=== PATIENT | male | born 1975 | race Caucasian/White ===

== ENCOUNTER 2018-03-04 11:38 | Emergency (ER) | payer MEDICAID ==
[2018-03-04 11:47] VITALS: BP 143/94
--- NOTE | 2018-03-04 13:00 | ER Document Report ---
ED Medical Screen (RME) - General Chief Complaint: Facial Swelling Stated Complaint: POSSIBLE ALLERGIC REACTION Time Seen by Provider: 03/04/18 12:18 Mode of Arrival: Ambulatory Information source: Patient Notes: This is a 42-year-old man with a history of type 1 diabetes who presents to the emergency room with rash of the face, arms, trunk after doing work one day previous. Patient has had poison tali in the past. Patient was doing yard work with his daughter who has had significant rash to the face consistent with poison tali. TRAVEL OUTSIDE OF THE [place] IN LAST 30 DAYS: No - HPI Onset: Yesterday Onset/Duration: Gradual Quality of pain: Burning, Dull Severity: Mild Associated Symptoms: denies: Chest pain, Earache, Fever, Shortness of breath Exacerbated by: Denies Relieved by: Denies Similar symptoms previously: Yes Recently seen / treated by doctor: No - Related Data Smoking: Cigarettes Frequency of alcohol use: None Drug Abuse: None Allergies/Adverse Reactions: No Known Allergies Allergy (Verified 03/04/18 11:38) Past Medical History - General Information source: Patient - Social History Cigarette use (# per day): Yes - Half a pack per day Chew tobacco use (# tins/day): Yes Frequency of alcohol use: None Drug Abuse: None Lives with: Family Family history: None Endocrine Medical History: Reports: Hx Diabetes Mellitus Type 2 Renal/ Medical History: Denies: Hx Peritoneal Dialysis Psychiatric Medical History: Reports: Hx Bipolar Disorder Past Surgical History: Reports: Hx Abdominal Surgery, Hx Appendectomy, Hx Cholecystectomy, Hx Orthopedic Surgery - 3xback, 2x rt. elbow Review of Systems - Review of Systems Constitutional: denies: Chills, Fever EENT: Other Cardiovascular: denies: Chest pain - Facial rash, Palpitations, Heart racing Respiratory: denies: Cough, Hemoptysis, Short of breath, Wheezing Gastrointestinal: denies: Abdomen distended, Abdominal pain Genitourinary: No symptoms reported Male Genitourinary: No symptoms reported Musculoskeletal: See HPI Skin: See HPI Hematologic/Lymphatic: No symptoms reported Neurological/Psychological: No symptoms reported Physical Exam - Vital signs Vitals: Temp Pulse Resp BP Pulse Ox 98.0 F 92 20 143/94 H 100 03/04/18 11:45 03/04/18 11:45 03/04/18 11:45 03/04/18 11:45 08/22/18 11:45 Notes: Physical exam: GENERAL: 32-year-old man, alert and oriented 3, no acute distress, does have a diffuse rash to the face. There is some swelling. HEAD: Atraumatic, normocephalic. EYES: Pupils equal round and reactive to light, extraocular movements intact, sclera anicteric, conjunctiva are normal. ENT: TMs normal, nares patent, oropharynx clear without exudates. Moist mucous membranes. NECK: Normal range of motion, supple without obvious mass or JVD. LUNGS: Breath sounds clear to auscultation bilaterally and equal. No wheezes rales or rhonchi. HEART: Regular rate and rhythm without murmurs, rubs or gallops. ABDOMEN: Soft, normoactive bowel sounds. No tenderness to palpation. No guarding, no rebound. No masses appreciated. EXTREMITIES: Normal range of motion, no pitting or edema. No clubbing or cyanosis. NEUROLOGICAL: Cranial nerves II through XII grossly intact. Normal speech, moving all extremities. PSYCH: Normal mood, normal affect. SKIN: Fuhs erythematous rash to the face. He does have rash to the upper and lower extremities and trunk which are linear in nature. Course - Vital Signs Vital signs: Temp Pulse Resp BP Pulse Ox 98.0 F 92 20 143/94 H 100 03/04/18 11:45 03/04/18 11:45 03/04/18 11:45 03/04/18 11:45 03/04/18 11:45 Doctor's Discharge - Discharge Clinical Impression: Poison tali dermatitis Condition: Stable Disposition: HOME, SELF-CARE Instructions: Use of Diphenhydramine, Topical Steroid Cream or Ointment ([facility]) Additional Instructions: As we discussed, I would recommend bathing and Aveeno bath oil. You can use calamine lotion. Take Benadryl 1 tablet every 6 hours for itching. You can take Percocet for pain/discomfort. Return to the emergency room for worsening rash, or concerns getting worse. I do want to follow-up with a supervisor assembly room. Follow-up with a supervisor assembly room: [facility] [place] [id number] , [place], [place] [phone] Prescriptions: Oxycodone HCl/Acetaminophen [Percocet 5-325 mg Tablet] 1 - 2 tab PO ASDIR PRN # 25 tablet PRN Reason:
== END 2018-03-04 13:10 | disposition home or self-care (01) ==
LOC: ER 11:38
DX: L23.7 Allergic contact dermatitis due to plants, except food (principal); E10.9 Type 1 diabetes mellitus without complications; F17.210 Nicotine dependence, cigarettes, uncomplicated
CPT/HCPCS: 99282

== ENCOUNTER 2018-10-03 16:38 | Inpatient (IN) | payer MEDICAID ==
--- NOTE | 2018-10-03 18:14 | ER Document Report ---
ED Medical Screen (RME) - General Chief Complaint: Arrhythmia Stated Complaint: HEARTRATE ISSUE, FOOT/LEG SWELLING Time Seen by Provider: 10/03/18 18:11 Mode of Arrival: Wheelchair Information source: Patient TRAVEL OUTSIDE OF THE [place] IN LAST 30 DAYS: No - HPI Patient complains to provider of: R foot/leg pain and palpitations Onset: Yesterday - pt with h/o CHF with c/o L leg pain and swelling and palpitations. Denies CP - Related Data Allergies/Adverse Reactions: No Known Allergies Allergy (Verified 10/03/18 16:41) Past Medical History - Social History Chew tobacco use (# tins/day): No Frequency of alcohol use: None Drug Abuse: None Family history: None Endocrine Medical History: Reports: Hx Diabetes Mellitus Type 2 Renal/ Medical History: Denies: Hx Peritoneal Dialysis Psychiatric Medical History: Reports: Hx Bipolar Disorder Past Surgical History: Reports: Hx Abdominal Surgery, Hx Appendectomy, Hx Cholecystectomy, Hx Orthopedic Surgery - 3xback, 2x rt. elbow Physical Exam - Vital signs Vitals: Temp Pulse Resp BP Pulse Ox 98.5 F 102 H 16 135/84 H 99 10/03/18 16:55 10/03/18 16:55 10/03/18 16:55 10/03/18 16:55 10/03/18 16:55 Course - Vital Signs Vital signs: Temp Pulse Resp BP Pulse Ox 98.5 F 102 H 16 135/84 H 99 10/03/18 16:55 10/03/18 16:55 10/03/18 16:55 10/03/18 16:55 10/03/18 16:55
[2018-10-03 19:15] LABS: ABSOLUTE BASOPHILS # (AUTO) 0.1 10^3/uL (0.0-0.2); ABSOLUTE EOSINOPHILS # (AUTO) 0.2 10^3/uL (0.0-0.6); ABSOLUTE LYMPHOCYTES (AUTO) 1.8 10^3/uL (0.5-4.7); ABSOLUTE MONOCYTES (AUTO) 0.6 10^3/uL (0.1-1.4); ABSOLUTE NEUT (AUTO) 8.2 10^3/uL (1.7-8.2); BASOPHILS % (AUTO) 0.9 % (0-2); EOSINOPHILS % (AUTO) 1.9 % (0-6); HEMATOCRIT 36.8 % (37.9-51.0); HEMOGLOBIN 12.6 g/dL (13.5-17.0); LYMPHOCYTES % (AUTO) 16.2 % (13-45); MEAN CORPUSCULAR HEMOGLOBIN 30.3 pg (27.0-33.4); MEAN CORPUSCULAR HGB CONC 34.3 g/dL (32.0-36.0); MEAN CORPUSCULAR VOLUME 88 fl (80-97); MONOCYTES % (AUTO) 5.5 % (3-13); PLATELET COUNT 296 10^3/uL (150-450); RED BLOOD COUNT 4.17 10^6/uL (4.35-5.55); SEGMENTED NEUTROPHILS % (AUTO) 75.5 % (42-78); TOTAL CELLS COUNTED % (AUTO) 100 %; WHITE BLOOD COUNT 10.8 10^3/uL (4.0-10.5)
--- NOTE | 2018-10-03 19:21 | RADIOLOGY REPORT (SQ) ---
EXAM DESCRIPTION: FOOT RIGHT COMPLETE COMPLETED DATE/TIME: 10/03/2018 7:06 pm REASON FOR STUDY: redness, swelling COMPARISON: None. NUMBER OF VIEWS: Three views. TECHNIQUE: AP, lateral and oblique radiographic images acquired of the right foot. LIMITATIONS: None. FINDINGS: MINERALIZATION: Normal. BONES: No acute fracture or dislocation. No worrisome bone lesions. JOINTS: No effusions. SOFT TISSUES: No soft tissue swelling. No foreign body. OTHER: No other significant finding. IMPRESSION: NEGATIVE STUDY OF THE RIGHT FOOT. NO RADIOGRAPHIC EVIDENCE OF ACUTE INJURY. TECHNICAL DOCUMENTATION: JOB ID: [id number] [employer] / [employer]- All Rights Reserved Reading location - IP/workstation name: [email or web address]
[2018-10-03 19:36] LABS: ALANINE AMINOTRANSFERASE 16 U/L (21-72); ALBUMIN 4.2 g/dL (3.5-5.0); ALKALINE PHOSPHATASE 59 U/L (38-126); ANION GAP 13 (5-19); ASPARTATE AMINO TRANSFERASE 26 U/L (17-59); BILIRUBIN,DIRECT 0.3 mg/dL (0.0-0.4); BILIRUBIN,TOTAL 0.5 mg/dL (0.2-1.3); BLOOD UREA NITROGEN 12 mg/dL (7-20); CALCIUM 9.3 mg/dL (8.4-10.2); CARBON DIOXIDE 29 mmol/L (22-30); CHLORIDE 95 mmol/L (98-107); CREATINE KINASE 59 U/L (55-170); GLUCOSE 266 mg/dL (75-110); POTASSIUM 3.5 mmol/L (3.6-5.0); SODIUM 137.4 mmol/L (137-145); TOTAL PROTEIN 7.7 g/dL (6.3-8.2)
--- NOTE | 2018-10-03 19:44 | RADIOLOGY REPORT (SQ) ---
EXAM DESCRIPTION: VENOUS UNILATERAL LOWER COMPLETED DATE/TIME: 10/03/2018 7:34 pm REASON FOR STUDY: R leg pain and swelling COMPARISON: None. TECHNIQUE: Dynamic and static worthington scale and color images acquired of the right leg venous system. S elected spectral images acquired with additional compression and augmentation maneuvers. The contrala teral common femoral vein and saphenofemoral junction were also imaged. Images stored on PACS. LIMITATIONS: None. FINDINGS: COMMON FEMORAL: Normal phasicity, compression and augmentation. No visualized echogenic ma terial on worthington scale. No defects on color images. FEMORAL: Normal compression and augmentation. No visualized echogenic material on worthington scale. No defe cts on color images. POPLITEAL: Normal compression, augmentation. No visualized echogenic material on worthington scale. No defec ts on color images. CALF VESSELS: Normal compression, augmentation. No visualized echogenic material on worthington scale. No de fects on color images. GSV and SSV: Normal compression, augmentation. No visualized echogenic material on worthington scale. No def ects on color images. ANY DEEP VENOUS INSUFFICIENCY: Not evaluated. ANY EVIDENCE OF POPLITEAL CYST: No. OTHER: No other significant finding. CONTRALATERAL COMMON FEMORAL VEIN AND SAPHENOFEMORAL JUNCTION: Normal phasicity, compression and augmentation. No visualized echogenic material on worthington scale. No de fects on color images. IMPRESSION: NO EVIDENCE DVT OR SVT IN THE RIGHT LEG. TECHNICAL DOCUMENTATION: JOB ID: [id number] [id number] 2010 [employer]- All Rights Reserved Reading location - IP/workstation name: [email or web address]
[2018-10-03 19:48] LABS: CREATINE KINASE MB 1.23 ng/mL (<4.55); TROPONIN I < 0.012 ng/mL
[2018-10-03] MEDS ORDERED: VANCOMYCIN HCL INJ 1000 MG VIAL IV ONE (20:29)
[2018-10-03] MEDS ORDERED: CEFTRIAXONE RTU 1 GM/D5W 50 ML IV ONE (20:29)
--- NOTE | 2018-10-03 20:31 | ER Document Report ---
ED Extremity Problem, Lower - General Chief Complaint: Arrhythmia Stated Complaint: HEARTRATE ISSUE, FOOT/LEG SWELLING Time Seen by Provider: 10/03/18 18:11 Mode of Arrival: Wheelchair Information source: Patient TRAVEL OUTSIDE OF THE [place] IN LAST 30 DAYS: No - HPI Patient complains to provider of: Pain, Swelling Location: Foot, Great Toe Occurred: Yesterday Onset/Duration: Gradual Quality of pain: Achy, Burning, Fullness, Pressure, Throbbing Severity: Moderate Pain Level: 4 Recent injury: No Associated symptoms: Painful ambulation Exacerbated by: Movement Relieved by: Nothing Notes: Patient is a 43-year-old male with diabetes and congestive heart failure presenting to the emergency room today complaining of painful redness and swelling to his right foot that he first noted yesterday, he reports a subjective fever at home last night, denies injury or trauma, no new shoes, states he was not even wearing shoes most of the day yesterday, no history of similar symptoms previously - Related Data Allergies/Adverse Reactions: No Known Allergies Allergy (Verified 10/03/18 16:41) Past Medical History - General Information source: Patient - Social History Smoking Status: Never Smoker Chew tobacco use (# tins/day): No Frequency of alcohol use: None Drug Abuse: None Family History: Reviewed & Not Pertinent Patient has suicidal ideation: No Patient has homicidal ideation: No Endocrine Medical History: Reports: Hx Diabetes Mellitus Type 2 Renal/ Medical History: Denies: Hx Peritoneal Dialysis Psychiatric Medical History: Reports: Hx Bipolar Disorder Past Surgical History: Reports: Hx Abdominal Surgery, Hx Appendectomy, Hx Cholecystectomy, Hx Orthopedic Surgery - 3xback, 2x rt. elbow Review of Systems - Review of Systems Constitutional: Fever EENT: No symptoms reported Cardiovascular: No symptoms reported Respiratory: No symptoms reported Gastrointestinal: No symptoms reported Genitourinary: No symptoms reported Male Genitourinary: No symptoms reported Musculoskeletal: No symptoms reported Skin: See HPI Hematologic/Lymphatic: No symptoms reported Neurological/Psychological: No symptoms reported -: Yes All other systems reviewed and negative Physical Exam - Vital signs Vitals: Temp Pulse Resp BP Pulse Ox 98.5 F 102 H 16 135/84 H 99 10/03/18 16:55 10/03/18 16:55 10/03/18 16:55 10/03/18 16:55 10/03/18 16:55 Interpretation: Tachycardic - General General appearance: Appears well In distress: None - Appears in pain - HEENT Head: Normocephalic, Atraumatic Eyes: Normal Mouth/Lips: Caries - Dentition - Respiratory Respiratory status: No respiratory distress Chest status: Nontender Breath sounds: Normal Chest palpation: Normal - Cardiovascular Rhythm: Regular, Tachycardia Heart sounds: Normal auscultation Murmur: No - Abdominal Inspection: Normal Distension: No distension Bowel sounds: Normal Tenderness: Nontender - Back Back: Normal - Extremities General upper extremity: Normal inspection Foot: Other - Blistering present on the medial surface of the great toe on the right, with erythema extending to the dorsal surface of the foot and streaking up the medial leg, positive calf tenderness, erythematous skin is hot to touch and exquisitely tender - Neurological Neuro grossly intact: Yes Cognition: Normal Orientation: AAOx4 Lana Coma Scale Eye Opening: Spontaneous Lana Coma Scale Verbal: Oriented Caney Coma Scale Motor: Obeys Commands Lana Coma Scale Total: 15 Speech: Normal Motor strength normal: LUE, RUE, LLE, RLE Sensory: Normal - Psychological Associated symptoms: Normal affect, Normal mood - Skin Skin Temperature: Warm Skin Moisture: Dry Skin Color: Normal Course - Re-evaluation Re-evalutation: 10/03/18 21:39 Patient with foot cellulitis with slight streaking up the medial calf, tender to touch, reports subjective fevers at home, history of diabetes, white count is 10.8, labs are otherwise relatively unremarkable, however given patient's history of diabetes, and the extent of cellulitis with streaking up his leg decision was made to admit for IV antibiotics and further evaluation and treatment, patient in agreement with this plan, discussed with Dr. Purcell hospitalist who agrees to admit for further evaluation and treatment - Vital Signs Vital signs: Temp Pulse Resp BP Pulse Ox 98.5 F 102 H 22 H 156/109 H 100 10/03/18 16:55 10/03/18 16:55 10/03/18 20:01 10/03/18 20:00 10/03/18 20:01 - Laboratory Result Diagrams: 10/03/18 18:35 10/03/18 18:35 Laboratory results interpreted by me: 10/03/18 10/03/18 18:35 18:35 WBC 10.8 H RBC 4.17 L Hgb 12.6 L Hct 36.8 L Potassium 3.5 L Chloride 95 L Glucose 266 H ALT 16 L Discharge - Discharge Clinical Impression: Diabetic foot infection Condition: Stable Disposition: ADMITTED INPATIENT Admitting Provider: Hospitalist Unit Admitted: Medical Floor
[2018-10-03] MEDS ORDERED: MORPHINE SULFATE 10 MG/ML INJ IV ONE (20:49)
[2018-10-03] MEDS ORDERED: ZOLPIDEM TARTRATE 5 MG TABLET PO PRN (20:53)
[2018-10-03] MEDS ORDERED: MAGNESIUM HYDROXIDE SUSP 30 ML UDCUP PO PRN (20:53)
[2018-10-03] MEDS ORDERED: ACETAMINOPHEN 325 MG TABLET PO PRN (20:53)
[2018-10-03] MEDS ORDERED: ONDANSETRON HCL INJ/PF 4 MG/2 ML SDV IV PRN (20:53)
[2018-10-03] MEDS ORDERED: MAG HYDROX/AL HYDROX/SIMETH SUSP 30 ML UDCUP PO PRN (20:53)
[2018-10-03] MEDS ORDERED: PIPERACILLIN/TAZOBACTAM 3.375 GM VIAL IV PRN (21:43)
[2018-10-03] MEDS ORDERED: LIDOCAINE 1% INJ-PF (10 MG/ML) 30 ML SDV INJ ONE (21:48)
[2018-10-03] MEDS ORDERED: LIDOCAINE 1% INJ (10 MG/ML) 10 ML MDV INJ ONE (21:48)
[2018-10-03] MEDS ORDERED: VANCOMYCIN HCL INJ 1000 MG VIAL IV PRN (22:00)
[2018-10-03] MEDS ORDERED: PIPERACILLIN/TAZOBACTAM 3.375 GM VIAL IV ONE (22:00)
--- NOTE | 2018-10-03 22:14 | EKG REPORT ---
SEVERITY:- BORDERLINE ECG - SINUS RHYTHM BORDERLINE T WAVE ABNORMALITIES : Confirmed by: Bj Thomas 03-Oct-2018 22:13:25
[2018-10-03] MEDS ORDERED: LABETALOL HCL INJ 20 MG/4 ML DISP.SYRIN IV PRN (22:16)
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
[2018-10-03] MEDS ORDERED: GLUCAGON,HUMAN RECOMB 1 MG INJ IM PRN (22:17)
[2018-10-03] MEDS ORDERED: DEXTROSE 50%-WATER 25 GM/50 ML DISP.SYRIN IV PRN ×2 (22:17)
[2018-10-03] MEDS ORDERED: DEXTROSE 40% GEL 15 GM TUBE PO PRN ×2 (22:17)
[2018-10-03] MEDS ORDERED: VANCOMYCIN HCL 1,000 MG in DEXTROSE 5%-WATER 250 ML IV ONE (23:00)
[2018-10-03] MEDS ORDERED: ALPRAZOLAM 0.5 MG TABLET PO ONE (23:02)
[2018-10-03] MEDS ORDERED: PAROXETINE HCL 20 MG TABLET PO ONE (23:02)
[2018-10-03] MEDS ORDERED: QUETIAPINE FUMARATE 100 MG TABLET PO ONE (23:02)
[2018-10-03] MEDS ORDERED: GABAPENTIN 100 MG CAPSULE PO ONE (23:02)
[2018-10-04] MEDS ORDERED: INSULIN LISPRO 100 UNIT/ML 3 ML VIAL SUBCUT SCH
[2018-10-04] MEDS: NORMAL SALINE 1000 ML 1,000 ML IV PRN ×2 (00:59→14:20)
[2018-10-04] MEDS ORDERED: PIPERACILLIN/TAZOBACTAM 3.375 GM VIAL IV ONE (01:00)
[2018-10-04] MEDS: OXYCODONE-ACETAMINOPHEN 5-325 MG TABLET PO PRN ×3 (01:01→17:33)
[2018-10-04] MEDS ORDERED: PIPERACILLIN/TAZOBACTAM 3.375 GM VIAL IV SCH ×2 (03:00→09:00)
[2018-10-04 05:36] LABS: ABSOLUTE EOSINOPHILS # (AUTO) 0.2 10^3/uL (0.0-0.6); ABSOLUTE LYMPHOCYTES (AUTO) 2.4 10^3/uL (0.5-4.7); ABSOLUTE MONOCYTES (AUTO) 0.6 10^3/uL (0.1-1.4); ABSOLUTE NEUT (AUTO) 4.4 10^3/uL (1.7-8.2); BASOPHILS % (AUTO) 0.6 % (0-2); EOSINOPHILS % (AUTO) 3.1 % (0-6); HEMATOCRIT 33.2 % (37.9-51.0); HEMOGLOBIN 11.5 g/dL (13.5-17.0); LYMPHOCYTES % (AUTO) 30.9 % (13-45); MEAN CORPUSCULAR HEMOGLOBIN 30.5 pg (27.0-33.4); MEAN CORPUSCULAR HGB CONC 34.8 g/dL (32.0-36.0); MEAN CORPUSCULAR VOLUME 88 fl (80-97); PLATELET COUNT 265 10^3/uL (150-450); RED BLOOD COUNT 3.77 10^6/uL (4.35-5.55); RED CELL DISTRIBUTION WIDTH 12.9 % (11.5-14.0); SEGMENTED NEUTROPHILS % (AUTO) 57.4 % (42-78); TOTAL CELLS COUNTED % (AUTO) 100 %; WHITE BLOOD COUNT 7.6 10^3/uL (4.0-10.5)
[2018-10-04 05:55] LABS: ANION GAP 12 (5-19); BLOOD UREA NITROGEN 10 mg/dL (7-20); CALCIUM 8.7 mg/dL (8.4-10.2); CARBON DIOXIDE 27 mmol/L (22-30); CHLORIDE 97 mmol/L (98-107); GLUCOSE 198 mg/dL (75-110); POTASSIUM 3.8 mmol/L (3.6-5.0); SODIUM 135.8 mmol/L (137-145)
[2018-10-04] MEDS: INSULIN LISPRO 100 UNIT/ML 3 ML VIAL SUBCUT SCH ×4 (08:26→22:34)
[2018-10-04] MEDS: PIPERACILLIN SODIUM/TAZOBACTAM 3.375 GM in NORMAL SALINE 100 ML IV SCH ×3 (09:07→20:44)
[2018-10-04] MEDS: ENOXAPARIN SODIUM INJ 40 MG/0.4 ML DISP.SYRIN SUBCUT SCH (09:07)
[2018-10-04] MEDS: VANCOMYCIN HCL 1,250 MG in DEXTROSE 5%-WATER 250 ML IV SCH ×2 (11:10→22:34)
--- NOTE | 2018-10-04 18:09 | PDOC PROGRESS REPORT ---
Subjective Progress Note for:: 10/04/18 Subjective:: Doing better. Right foot pain improved. Denies fever or chills. Reason For Visit: RT DIABETIC FOOT CELLULITIS Physical Exam Vital Signs: Temp Pulse Resp BP Pulse Ox 98.5 F 84 16 131/77 H 97 10/04/18 15:21 10/04/18 15:21 10/04/18 15:21 10/04/18 15:21 10/04/18 15:21 Intake & Output 10/03/18 10/04/18 10/05/18 06:59 06:59 06:59 Intake Total 337 2039 Balance 337 2039 Weight 71 kg GENERAL: Well-developed, no acute distress HEENT: Normocephalic/atraumatic NECK supple, no JVD CARDIOVASCULAR: RRR, normal S1-S2 LUNGS: CTA bilaterally ABDOMEN: Soft, NT, NL bowel sounds EXTREMITIES: No edema, clubbing, cyanosis, right first toe without significant erythema, distal medial aspect status post I&D, minimal tenderness present NEUROLOGICAL: Alert, oriented x 3, no focal weakness. Results Laboratory Results: 10/04/18 05:13 10/04/18 05:13 10/03/18 10/03/18 10/04/18 18:35 18:35 05:13 WBC 10.8 H 7.6 RBC 4.17 L 3.77 L Hgb 12.6 L 11.5 L Hct 36.8 L 33.2 L MCV 88 88 MCH 30.3 30.5 MCHC 34.3 34.8 RDW 13.0 12.9 Plt Count 296 265 Seg Neutrophils % 75.5 57.4 Lymphocytes % 16.2 30.9 Monocytes % 5.5 8.0 Eosinophils % 1.9 3.1 Basophils % 0.9 0.6 Absolute Neutrophils 8.2 4.4 Absolute Lymphocytes 1.8 2.4 Absolute Monocytes 0.6 0.6 Absolute Eosinophils 0.2 0.2 Absolute Basophils 0.1 0.0 Sodium 137.4 Potassium 3.5 L Chloride 95 L Carbon Dioxide 29 Anion Gap 13 BUN 12 Creatinine 0.74 Est GFR ( Amer) > 60 Est GFR (Non-Af Amer) > 60 Glucose 266 H Calcium 9.3 Total Bilirubin 0.5 AST 26 ALT 16 L Alkaline Phosphatase 59 Total Protein 7.7 Albumin 4.2 10/04/18 05:13 WBC RBC Hgb Hct MCV MCH MCHC RDW Plt Count Seg Neutrophils % Lymphocytes % Monocytes % Eosinophils % Basophils % Absolute Neutrophils Absolute Lymphocytes Absolute Monocytes Absolute Eosinophils Absolute Basophils Sodium 135.8 L Potassium 3.8 Chloride 97 L Carbon Dioxide 27 Anion Gap 12 BUN 10 Creatinine 0.63 Est GFR ( Amer) > 60 Est GFR (Non-Af Amer) > 60 Glucose 198 H Calcium 8.7 Total Bilirubin AST ALT Alkaline Phosphatase Total Protein Albumin 10/03/18 10/03/18 18:35 18:35 Creatine Kinase 59 CK-MB (CK-2) 1.23 Troponin I < 0.012 Impressions: Venous Doppler Study 10/03/18 18:12 IMPRESSION: NO EVIDENCE DVT OR SVT IN THE RIGHT LEG. Foot X-Ray 10/03/18 18:56 IMPRESSION: NEGATIVE STUDY OF THE RIGHT FOOT. NO RADIOGRAPHIC EVIDENCE OF ACUTE INJURY. Assessment and Plan - Diagnosis (1) Accelerated hypertension Is this a current diagnosis for this admission?: Yes (2) Bipolar disorder Is this a current diagnosis for this admission?: Yes (3) Diabetic foot infection Is this a current diagnosis for this admission?: Yes (4) Uncontrolled type 2 diabetes mellitus Is this a current diagnosis for this admission?: Yes - Plan Summary Plan Summary: Leukocytosis has improved today. We will continue Vanco and Zosyn for now. Follow blood and wound culture results. Blood pressures doing better at this time. Continue aggressive medical management otherwise.
[2018-10-04] MEDS: MORPHINE SULFATE 10 MG/ML INJ IV PRN (20:43)
[2018-10-04] MEDS ORDERED: VANCOMYCIN HCL 1,000 MG in DEXTROSE 5%-WATER 250 ML IV SCH (22:00)
[2018-10-05] MEDS ORDERED: QUETIAPINE FUMARATE 100 MG TABLET PO ONE (01:00)
[2018-10-05] MEDS ORDERED: ALPRAZOLAM 0.5 MG TABLET PO ONE (01:00)
[2018-10-05] MEDS ORDERED: GABAPENTIN 300 MG CAPSULE PO ONE (01:00)
[2018-10-05] MEDS ORDERED: TRAZODONE HCL 50 MG TABLET PO ONE (01:00)
[2018-10-05] MEDS ORDERED: PAROXETINE HCL 20 MG TABLET PO ONE (01:00)
[2018-10-05] MEDS: PIPERACILLIN SODIUM/TAZOBACTAM 3.375 GM in NORMAL SALINE 100 ML IV SCH ×2 (02:18→08:20)
[2018-10-05] MEDS: MORPHINE SULFATE 10 MG/ML INJ IV PRN (02:19)
[2018-10-05 06:53] LABS: ABSOLUTE BASOPHILS # (AUTO) 0.1 10^3/uL (0.0-0.2); ABSOLUTE EOSINOPHILS # (AUTO) 0.2 10^3/uL (0.0-0.6); ABSOLUTE LYMPHOCYTES (AUTO) 2.4 10^3/uL (0.5-4.7); ABSOLUTE MONOCYTES (AUTO) 0.7 10^3/uL (0.1-1.4); ABSOLUTE NEUT (AUTO) 5.2 10^3/uL (1.7-8.2); BASOPHILS % (AUTO) 0.9 % (0-2); EOSINOPHILS % (AUTO) 2.9 % (0-6); HEMATOCRIT 32.3 % (37.9-51.0); HEMOGLOBIN 11.1 g/dL (13.5-17.0); LYMPHOCYTES % (AUTO) 27.5 % (13-45); MEAN CORPUSCULAR HGB CONC 34.3 g/dL (32.0-36.0); MEAN CORPUSCULAR VOLUME 88 fl (80-97); MONOCYTES % (AUTO) 8.5 % (3-13); PLATELET COUNT 286 10^3/uL (150-450); RED CELL DISTRIBUTION WIDTH 12.7 % (11.5-14.0); SEGMENTED NEUTROPHILS % (AUTO) 60.2 % (42-78); TOTAL CELLS COUNTED % (AUTO) 100 %; WHITE BLOOD COUNT 8.6 10^3/uL (4.0-10.5)
[2018-10-05 07:11] LABS: ANION GAP 8 (5-19); BLOOD UREA NITROGEN 9 mg/dL (7-20); CALCIUM 8.6 mg/dL (8.4-10.2); CARBON DIOXIDE 25 mmol/L (22-30); CHLORIDE 102 mmol/L (98-107); GLUCOSE 245 mg/dL (75-110); POTASSIUM 3.9 mmol/L (3.6-5.0); SODIUM 135.1 mmol/L (137-145)
[2018-10-05] MEDS: INSULIN LISPRO 100 UNIT/ML 3 ML VIAL SUBCUT SCH ×2 (08:20→11:38)
[2018-10-05] MEDS: NORMAL SALINE 1000 ML 1,000 ML IV PRN (08:28)
[2018-10-05] MEDS: ENOXAPARIN SODIUM INJ 40 MG/0.4 ML DISP.SYRIN SUBCUT SCH (10:10)
[2018-10-05] MEDS: VANCOMYCIN HCL 1,250 MG in DEXTROSE 5%-WATER 250 ML IV SCH (10:12)
[2018-10-05 10:42] LABS: VANCOMYCIN,TROUGH 8.5 ug/mL (5.0-20.0)
[2018-10-05 11:40] VITALS: BP 111/76
[2018-10-05] MEDS ORDERED: VANCOMYCIN HCL 1,000 MG in DEXTROSE 5%-WATER 250 ML IV SCH (18:00)
[2018-10-05] MEDS ORDERED: GABAPENTIN 300 MG CAPSULE PO SCH (22:00)
[2018-10-05] MEDS ORDERED: QUETIAPINE FUMARATE 100 MG TABLET PO SCH (22:00)
[2018-10-05] MEDS ORDERED: TRAZODONE HCL 50 MG TABLET PO SCH (22:00)
[2018-10-05] MEDS ORDERED: ALPRAZOLAM 0.5 MG TABLET PO SCH (22:00)
[2018-10-05] MEDS ORDERED: PAROXETINE HCL 20 MG TABLET PO SCH (22:00)
--- NOTE | 2018-10-06 14:06 | PDOC DISCHARGE SUMMARY ---
General - Admit/Disc Date/PCP Admission Date/Primary Care Provider: 10/03/18 21:08 Discharge Date: 10/05/18 - Discharge Diagnosis (1) Diabetic foot infection Is this a current diagnosis for this admission?: Yes Summary: The patient has a blanched area on the medial aspect of the right hallux. This would be consistent with an abscess formation. There is no evidence of bone degradation on plain film. The area was drained and the contents sent for culture. It was a pure culture of staph aureus that is methicillin sensitive. I will place the patient on dicloxacillin to complete a course of therapy. The worry with these blanched areas is progression to ulceration. The patient does have 2+ dorsalis pedis pulses. His diabetes is not controlled. He certainly is at risk for decompensation. I have recommended an appointment with the wound care clinic for further evaluation. (2) Uncontrolled type 2 diabetes mellitus Is this a current diagnosis for this admission?: Yes Summary: Accu-Cheks were above 200. The patient needs to establish with a primary care physician. I did not start the patient on any diabetic medication as I will not be following him up as an outpatient. An appointment was scheduled with Dr. Michael for primary care. (3) Hypertension Is this a current diagnosis for this admission?: Yes Summary: The patient's blood pressure was elevated at times and normal at times. It is hard to know if this fluctuation is related to discomfort with his foot. I will defer to his outpatient provider to initiate treatment and follow-up. An appointment was scheduled with Dr. Michael for primary care. (4) Bipolar disorder Is this a current diagnosis for this admission?: Yes Summary: Continue Paxil, trazodone and Seroquel. Follow-up with mental health as previously arranged. - Additional Information Resuscitation Status: Full Code Prescriptions: Dicloxacillin Sodium 500 mg PO QID 10 Days #40 capsule Oxycodone HCl/Acetaminophen [Percocet 5-325 mg Tablet] 1 tab PO Q4HP PRN 5 Days #5 tablet PRN Reason: Home Medications: Alprazolam [Xanax] 2 mg PO QHS 10/04/18 Gabapentin [Neurontin 300 mg Capsule] 300 mg PO QHS 10/04/18 Paroxetine HCl [Paxil] 40 mg PO QHS 10/04/18 Quetiapine Fumarate [Seroquel] 200 mg PO QHS 10/04/18 Trazodone HCl [Desyrel] 150 mg PO QHS 10/04/18 Dicloxacillin Sodium 500 mg PO QID 10 Days #40 capsule 10/05/18 Oxycodone HCl/Acetaminophen [Percocet 5-325 mg Tablet] 1 tab PO Q4HP PRN 5 Days #5 tablet 10/05/18 History of Present Illness Patient complains of: Worsening pain right hallux with fever. History of Present Illness: FILEMON VERGARA is a 43 year old male with a history of diabetes, bipolar disorder, hypertension and possible congestive heart failure. He had several days of increasing pain, erythema and swelling of the right hallux. He present ed to the emergency department for evaluation. He was found to have a minimally elevated white blood cell count (10.8) and hyper glycemia. His potassium was at the low limit of normal at 3.5. X-ray showed no osteomyelitis. The exam revealed subcutaneous collection of purulent material. The emergency room physician did incise and drain the abscess area. A specimen was sent for culture. The patient was placed on broad-spectrum antibiotic therapy pending laboratory results. Hospital Course Hospital Course: The patient had an unremarkable hospital course. His white blood cell count normalized potassium was in the mid normal range and he did not exhibit any fever. Erythema and swelling in the toe was improving. There is no evidence of osteomyelitis in the toe. Today the final culture results were available and the patient has a methicillin sensitive staph aureus infection. He will be placed on dicloxacillin to complete as an outpatient. I have asked for referral to the wound care center (as these lesions can have deeper tissue damage especially patient with uncontrolled diabetes) and an appointment with a primary care provider. Physical Exam Vital Signs: Temp Pulse Resp BP Pulse Ox 97.8 F 87 14 111/76 97 10/05/18 11:39 10/05/18 11:39 10/05/18 11:39 10/05/18 11:39 10/05/18 11:39 Intake & Output 10/04/18 10/05/18 10/06/18 06:59 06:59 06:59 Intake Total 337 4554 Balance 337 4554 Weight 71 kg 72.3 kg General appearance: PRESENT: no acute distress, disheveled, well-developed Head exam: PRESENT: normocephalic Eye exam: PRESENT: conjunctiva pink. ABSENT: scleral icterus Teeth exam: PRESENT: poor dentation Respiratory exam: PRESENT: clear to auscultation neil, symmetrical, unlabored. ABSENT: accessory muscle use, rales, rhonchi, wheezes Cardiovascular exam: PRESENT: RRR, +S1, +S2, systolic murmur - 2/6 Pulses: PRESENT: +2 pedal pulses bilateral GI/Abdominal exam: PRESENT: normal bowel sounds, soft. ABSENT: distended, tenderness Rectal exam: PRESENT: deferred Extremities exam: ABSENT: pedal edema Musculoskeletal exam: PRESENT: ambulatory Neurological exam: PRESENT: alert, awake, oriented to person, oriented to place, oriented to time, oriented to situation, CN II-XII grossly intact Psychiatric exam: PRESENT: flat affect. ABSENT: agitated, anxious Focused psych exam: ABSENT: delusional, restlessness Skin exam: PRESENT: other - Still with erythema on the right hallux. Blanched area at the location of the abscess. Results Laboratory Results: 10/05/18 06:49 10/05/18 06:49 10/05/18 10/05/18 06:49 06:49 WBC 8.6 RBC 3.70 L Hgb 11.1 L Hct 32.3 L MCV 88 MCH 30.0 MCHC 34.3 RDW 12.7 Plt Count 286 Seg Neutrophils % 60.2 Lymphocytes % 27.5 Monocytes % 8.5 Eosinophils % 2.9 Basophils % 0.9 Absolute Neutrophils 5.2 Absolute Lymphocytes 2.4 Absolute Monocytes 0.7 Absolute Eosinophils 0.2 Absolute Basophils 0.1 Sodium 135.1 L Potassium 3.9 Chloride 102 Carbon Dioxide 25 Anion Gap 8 BUN 9 Creatinine 0.56 Est GFR ( Amer) > 60 Est GFR (Non-Af Amer) > 60 Glucose 245 H Calcium 8.6 10/03/18 22:15 Toe - Right Big Toe Gram Stain - Final 10/03/18 22:15 Toe - Right Big Toe Wound Culture - Final Staphylococcus Aureus 10/03/18 10/03/18 18:35 18:35 Creatine Kinase 59 CK-MB (CK-2) 1.23 Troponin I < 0.012 Impressions: Venous Doppler Study 10/03/18 18:12 IMPRESSION: NO EVIDENCE DVT OR SVT IN THE RIGHT LEG. Foot X-Ray 10/03/18 18:56 IMPRESSION: NEGATIVE STUDY OF THE RIGHT FOOT. NO RADIOGRAPHIC EVIDENCE OF ACUTE INJURY. Qualifiers - * PATIENT BEING DISCHARGED WITH ANY OF THE FOLLOWING DIAGNOSIS: No Plan Discharge Plan: Outpatient appointments as above. Dicloxacillin prescription provided to the patient. Time Spent: Greater than 30 Minutes
== END 2018-10-05 14:48 | disposition home or self-care (01) | DRG 638 ==
LOC: ER 16:38 → EH 21:08 → 4N 23:50 → 2N 10-05 03:50
PROVIDERS: ADMIT Family Medicine; ATTEND Family Medicine
PROC: 0H9MXZX Drainage of Right Foot Skin, External Approach, Diagnostic (ICD-10-PCS; principal; 2018-10-03)
DX: E11.628 Type 2 diabetes mellitus with other skin complications (principal); L03.115 Cellulitis of right lower limb; E11.65 Type 2 diabetes mellitus with hyperglycemia; I50.9 Heart failure, unspecified; I11.0 Hypertensive heart disease with heart failure; F31.9 Bipolar disorder, unspecified; B95.61 Methicillin susceptible Staphylococcus aureus infection as the cause of diseases classified elsewhere
CPT/HCPCS: 36415; 80048; 80053; 80202; 82550; 82553; 82962; 84484; 85025; 87040; 87070; 87077; 87186; 87205; 93005; 93010; 93971; 99285; J0696; J1650; J1815; J2270; J2543; J3370; J7030; J7060

== ENCOUNTER 2018-10-28 01:11 | Emergency (ER) | payer OTHER, MEDICAID ==
[2018-10-28] MEDS ORDERED: ASPIRIN 81 MG TABLET, CHEWABLE PO ONE (01:22)
--- NOTE | 2018-10-28 02:04 | RADIOLOGY REPORT (SQ) ---
EXAM DESCRIPTION: XR CHEST 1 VIEW COMPLETED DATE/TME: 10/28/2018 01:22 CLINICAL HISTORY: 43 years, Male, CP Comparison: None FINDINGS: No focal lung consolidation. No pleural effusion. No pneumothorax. Cardiac and mediastinal silhouette is unremarkable. No acute osseous abnormality. Soft tissues are unremarkable. IMPRESSION: No acute findings. No focal lung consolidation.
[2018-10-28 02:35] LABS: ABSOLUTE EOSINOPHILS # (AUTO) 0.1 10^3/uL (0.0-0.6); ABSOLUTE MONOCYTES (AUTO) 0.5 10^3/uL (0.1-1.4); ABSOLUTE NEUT (AUTO) 6.4 10^3/uL (1.7-8.2); BASOPHILS % (AUTO) 0.5 % (0-2); EOSINOPHILS % (AUTO) 0.7 % (0-6); HEMATOCRIT 36.2 % (37.9-51.0); HEMOGLOBIN 12.6 g/dL (13.5-17.0); LYMPHOCYTES % (AUTO) 22.5 % (13-45); MEAN CORPUSCULAR HGB CONC 34.8 g/dL (32.0-36.0); MEAN CORPUSCULAR VOLUME 86 fl (80-97); MONOCYTES % (AUTO) 5.6 % (3-13); PLATELET COUNT 371 10^3/uL (150-450); SEGMENTED NEUTROPHILS % (AUTO) 70.7 % (42-78); TOTAL CELLS COUNTED % (AUTO) 100 %
[2018-10-28 02:57] LABS: ALANINE AMINOTRANSFERASE 20 U/L (21-72); ALBUMIN 4.3 g/dL (3.5-5.0); ALKALINE PHOSPHATASE 48 U/L (38-126); ANION GAP 11 (5-19); ASPARTATE AMINO TRANSFERASE 16 U/L (17-59); BILIRUBIN,DIRECT 0.3 mg/dL (0.0-0.4); BILIRUBIN,TOTAL 0.7 mg/dL (0.2-1.3); BLOOD UREA NITROGEN 11 mg/dL (7-20); CALCIUM 10.2 mg/dL (8.4-10.2); CARBON DIOXIDE 26 mmol/L (22-30); CHLORIDE 101 mmol/L (98-107); CREATINE KINASE 84 U/L (55-170); GLUCOSE 235 mg/dL (75-110); POTASSIUM 3.6 mmol/L (3.6-5.0); SODIUM 137.7 mmol/L (137-145); TOTAL PROTEIN 7.3 g/dL (6.3-8.2)
[2018-10-28 03:11] LABS: TROPONIN I < 0.012 ng/mL
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
[2018-10-28] MEDS ORDERED: QUETIAPINE FUMARATE 100 MG TABLET PO ONE (03:25)
[2018-10-28] MEDS ORDERED: PAROXETINE HCL 20 MG TABLET PO ONE (03:26)
[2018-10-28] MEDS ORDERED: ALPRAZOLAM 0.5 MG TABLET PO ONE (03:26)
[2018-10-28] MEDS ORDERED: GABAPENTIN 300 MG CAPSULE PO ONE (03:26)
[2018-10-28] MEDS ORDERED: TRAZODONE HCL 50 MG TABLET PO ONE (03:26)
[2018-10-28] MEDS ORDERED: INSULIN REG, HUMAN 100 UNIT/ML 3 ML VIAL (PYX) SUBCUT ONE (05:05)
[2018-10-28 05:14] VITALS: BP 104/65
--- NOTE | 2018-10-28 08:31 | EKG REPORT ---
SEVERITY:- NORMAL ECG - SINUS RHYTHM : Confirmed by: Desiree Bloom MD 28-Oct-2018 08:30:23
== END 2018-10-28 05:26 | disposition home or self-care (01) ==
LOC: ER 01:11
DX: R07.9 Chest pain, unspecified (principal); R51 Headache; I50.9 Heart failure, unspecified; I11.0 Hypertensive heart disease with heart failure; E11.9 Type 2 diabetes mellitus without complications; Z90.49 Acquired absence of other specified parts of digestive tract
CPT/HCPCS: 93005; 99285; 36415; 82553; 82550; 85025; 80053; 84484; 71045; 93010; J1815

== ENCOUNTER 2018-11-27 20:13 | Emergency (ER) | payer MEDICAID ==
[2018-11-27] MEDS ORDERED: LIDOCAINE 1% INJ-PF (10 MG/ML) 30 ML SDV INJ ONE (21:10)
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
[2018-11-27] MEDS ORDERED: ACETAMINOPHEN 325 MG TABLET PO ONE (21:13)
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
== END 2018-11-27 22:41 | disposition home or self-care (01) ==
LOC: ER 20:13
DX: S01.01XA Laceration without foreign body of scalp, initial encounter (principal); S01.112A Laceration without foreign body of left eyelid and periocular area, initial encounter; S81.012A Laceration without foreign body, left knee, initial encounter; Y04.2XXA Assault by strike against or bumped into by another person, initial encounter; Y92.481 Parking lot as the place of occurrence of the external cause; F17.200 Nicotine dependence, unspecified, uncomplicated; I50.9 Heart failure, unspecified; I11.0 Hypertensive heart disease with heart failure; E11.9 Type 2 diabetes mellitus without complications; Z90.49 Acquired absence of other specified parts of digestive tract
CPT/HCPCS: 99284; 70450; 72125; 12014; 12001; J3490 ×2

== ENCOUNTER 2019-01-11 10:56 | Emergency (ER) | payer MEDICAID ==
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
[2019-01-11 11:39] LABS: ABSOLUTE BASOPHILS # (AUTO) 0.1 10^3/uL (0.0-0.2); ABSOLUTE EOSINOPHILS # (AUTO) 0.2 10^3/uL (0.0-0.6); ABSOLUTE MONOCYTES (AUTO) 0.5 10^3/uL (0.1-1.4); ABSOLUTE NEUT (AUTO) 6.8 10^3/uL (1.7-8.2); EOSINOPHILS % (AUTO) 2.3 % (0-6); HEMATOCRIT 41.9 % (37.9-51.0); HEMOGLOBIN 14.4 g/dL (13.5-17.0); LYMPHOCYTES % (AUTO) 20.7 % (13-45); MEAN CORPUSCULAR HEMOGLOBIN 29.9 pg (27.0-33.4); MEAN CORPUSCULAR HGB CONC 34.4 g/dL (32.0-36.0); MEAN CORPUSCULAR VOLUME 87 fl (80-97); PLATELET COUNT 359 10^3/uL (150-450); RED BLOOD COUNT 4.82 10^6/uL (4.35-5.55); RED CELL DISTRIBUTION WIDTH 13.8 % (11.5-14.0); TOTAL CELLS COUNTED % (AUTO) 100 %; WHITE BLOOD COUNT 9.6 10^3/uL (4.0-10.5)
[2019-01-11 11:43] LABS: VENOUS BLOOD BASE EXCESS 2.3 mmol/L; VENOUS BLOOD HCO3 28.4 mmol/L (20-32); VENOUS BLOOD PCO2 49.2 mmHg (35-63); VENOUS BLOOD PH 7.38 (7.30-7.42)
[2019-01-11 11:55] LABS: ALANINE AMINOTRANSFERASE 19 U/L (21-72); ALBUMIN 4.8 g/dL (3.5-5.0); ALKALINE PHOSPHATASE 57 U/L (38-126); ANION GAP 13 (5-19); ASPARTATE AMINO TRANSFERASE 22 U/L (17-59); BILIRUBIN,DIRECT 0.3 mg/dL (0.0-0.4); BILIRUBIN,TOTAL 0.7 mg/dL (0.2-1.3); BLOOD UREA NITROGEN 11 mg/dL (7-20); CARBON DIOXIDE 28 mmol/L (22-30); CHLORIDE 97 mmol/L (98-107); CREATINE KINASE 111 U/L (55-170); GLUCOSE 246 mg/dL (75-110); POTASSIUM 4.4 mmol/L (3.6-5.0); SODIUM 138.1 mmol/L (137-145); TOTAL PROTEIN 8.1 g/dL (6.3-8.2)
--- NOTE | 2019-01-11 12:06 | RADIOLOGY REPORT (SQ) ---
EXAM DESCRIPTION: CHEST SINGLE VIEW COMPLETED DATE/TIME: 01/11/2019 11:36 am REASON FOR STUDY: AMS COMPARISON: 10/28/2018 EXAM PARAMETERS: NUMBER OF VIEWS: One view. TECHNIQUE: Single frontal radiographic view of the chest acquired. RADIATION DOSE: NA LIMITATIONS: None. FINDINGS: LUNGS AND PLEURA: No opacities, masses or pneumothorax. No pleural effusion. MEDIASTINUM AND HILAR STRUCTURES: No masses. Contour normal. HEART AND VASCULAR STRUCTURES: Heart normal in size. Normal vasculature. BONES: No acute findings. HARDWARE: None in the chest. OTHER: No other significant finding. IMPRESSION: NO ACUTE RADIOGRAPHIC FINDING IN THE CHEST. TECHNICAL DOCUMENTATION: JOB ID: [id number] [employer]- All Rights Reserved Reading location - IP/workstation name: [email or web address]
--- NOTE | 2019-01-11 12:06 | RADIOLOGY REPORT (SQ) ---
EXAM DESCRIPTION: CT HEAD WITHOUT COMPLETED DATE/TIME: 01/11/2019 11:37 am REASON FOR STUDY: Acute lethargy, cannot stay awake COMPARISON: None. TECHNIQUE: Axial images acquired through the brain without intravenous contrast. Images reviewed wi th bone, brain and subdural windows. Additional sagittal and coronal reconstructions were generated. Images stored on PACS. All CT scanners at this facility use dose modulation, iterative reconstruction, and/or weight based d osing when appropriate to reduce radiation dose to as low as reasonably achievable (ALARA). [facility]: Dose Right [facility]: CareDose [facility]: Dose Right [facility]: Teradose 4D [facility]: [employer] RADIATION DOSE: CT Rad equipment meets quality standard of care and radiation dose reduction techniq ues were employed. CTDIvol: 53.2 mGy. DLP: 1017 mGy-cm. mGy. LIMITATIONS: None. FINDINGS: VENTRICLES: Normal size and contour. CEREBRUM: No masses. No hemorrhage. No midline shift. No evidence for acute infarction. Normal gra y/white matter differentiation. No areas of low density in the white matter. CEREBELLUM: No masses. No hemorrhage. No alteration of density. No evidence for acute infarction. EXTRAAXIAL SPACES: No fluid collections. No masses. ORBITS AND GLOBE: No intra- or extraconal masses. Normal contour of globe without masses. CALVARIUM: No fracture. PARANASAL SINUSES: No fluid or mucosal thickening. SOFT TISSUES: No mass or hematoma. OTHER: No other significant finding. IMPRESSION: NORMAL BRAIN CT WITHOUT CONTRAST. EVIDENCE OF ACUTE STROKE: NO. COMMENT: Quality ID # 436: Final reports with documentation of one or more dose reduction techniques (e.g., Automated exposure control, adjustment of the mA and/or kV according to patient size, use of iterative reconstruction technique) TECHNICAL DOCUMENTATION: JOB ID: [id number] [employer]- All Rights Reserved Reading location - IP/workstation name: [email or web address]
[2019-01-11 12:53] LABS: APPEARANCE,URINE CLEAR; BILIRUBIN,URINE NEGATIVE (NEGATIVE); COLOR,URINE YELLOW; GLUCOSE, URINE >=500 mg/dL (NEGATIVE); KETONES,URINE 20 mg/dL (NEGATIVE); LEUKOCYTE ESTERASE,URINE NEGATIVE (NEGATIVE); NITRITE,URINE NEGATIVE (NEGATIVE); PROTEIN,URINE NEGATIVE (NEGATIVE); URINE SPECIFIC GRAVITY 1.017; UROBILINOGEN,URINE NEGATIVE mg/dL (<2.0)
[2019-01-11 13:00] LABS: URINE AMPHETAMINES SCREEN NEGATIVE; URINE BARBITURATES SCREEN NEGATIVE; URINE BENZODIAZEPINES SCREEN NEGATIVE; URINE COCAINE SCREEN NEGATIVE; URINE MARIJUANA (THC) SCREEN UNCONFIRMED POSITIVE; URINE METHADONE SCREEN NEGATIVE; URINE PHENCYCLIDINE SCREEN NEGATIVE
[2019-01-11] MEDS ORDERED: ACETAMINOPHEN 325 MG TABLET PO ONE (13:17)
[2019-01-11 15:26] LABS: INTERNATIONAL RATION (INR) 0.97; PROTHROMBIN TIME 12.9 SEC (11.4-15.4)
[2019-01-11 16:16] LABS: CSF TUBE NUMBER 1
[2019-01-11 16:17] LABS: APPEARANCE ALL TUBES CLEAR; COLOR ALL TUBES COLORLESS; RED BLOOD CELL,CSF 0 /uL (0-10)
[2019-01-11 16:18] LABS: WHITE BLOOD CELL,CSF 1 /uL (0-5)
--- NOTE | 2019-01-11 16:19 | RADIOLOGY REPORT (SQ) ---
EXAM DESCRIPTION: LUMBAR PUNCTURE; FLUORO/NEEDLE PLACEMENT/SPINE COMPLETED DATE/TIME: 01/11/2019 4:01 pm REASON FOR STUDY: Severe headache, altered mental status; SEVERE ROBERT, AMS COMPARISON: None. FLUOROSCOPY TIME: 6 seconds 1 images saved to PACS. TECHNIQUE: Fluoroscopic guided lumbar puncture. LIMITATIONS: None. PROCEDURE: After written consent and assessment were obtained, the patient was brought into the fluo roscopy room and placed prone on the table. The patient's lower back was prepped in a sterile fashio n and an entry site was selected under live fluoroscopic guidance. The entry site was anesthetized wi th 1% lidocaine. A 22 gauge needle was advanced through the skin and into the thecal sac at the level of L3-L4. After approximately 8 ml was drained, the needle was removed and a sterile bandage was reny javier of the site. Specimens were sent to the lab for testing. A fluoroscopic spot image was saved to PACS confirming level access. FINDINGS: Clear CSF IMPRESSION: Lumbar puncture under fluoroscopy. No immediate complication. COMMENT: Patient medication list reviewed: Yes- Quality ID# 130:Eligible professional attests to doc umenting in the medical record they obtained, updated, or reviewed the patient's current medications. . Quality ID 145: Final reports for procedures using fluoroscopy that document radiation exposure sherine zoë, or exposure time and number of fluorographic images (if radiation exposure indices are not avail able) TECHNICAL DOCUMENTATION: JOB ID: [id number] [employer]- All Rights Reserved Reading location - IP/workstation name: [email or web address]
[2019-01-11 16:33] LABS: GLUCOSE,CSF 123 mg/dL (40-70); PROTEIN,CSF 76 mg/dL (12-60)
[2019-01-11 16:34] LABS: CSF TUBE NUMBER 4
[2019-01-11 16:35] LABS: APPEARANCE ALL TUBES CLEAR; COLOR ALL TUBES COLORLESS; RED BLOOD CELL,CSF 0 /uL (0-10); WHITE BLOOD CELL,CSF 0 /uL (0-5)
[2019-01-11] MEDS ORDERED: METFORMIN HCL 500 MG TABLET PO ONE (17:30)
[2019-01-11] MEDS ORDERED: LISINOPRIL 10 MG TABLET PO ONE (17:31)
[2019-01-11 17:58] VITALS: BP 164/119
--- NOTE | 2019-01-12 00:39 | EKG REPORT ---
SEVERITY:- NORMAL ECG - SINUS RHYTHM : Confirmed by: Bj Thomas 12-Jan-2019 00:38:12
== END 2019-01-11 17:55 | disposition home or self-care (01) ==
LOC: ER 10:56
DX: R41.82 Altered mental status, unspecified (principal); R53.1 Weakness; I50.9 Heart failure, unspecified; I11.0 Hypertensive heart disease with heart failure; E11.9 Type 2 diabetes mellitus without complications; Z90.49 Acquired absence of other specified parts of digestive tract; Z91.14 Patient's other noncompliance with medication regimen
CPT/HCPCS: 93005; 99285; 36415; 87040; 87070; 87205; 82962; 82550; 83735; 85025; 85610; 89050; 82945; 84157; 80053; 81001; 84484; 80307; 83036; 82803; 83605; 71045; 77003; 62270; 70450; 93010; J3490 ×3

== ENCOUNTER 2019-01-12 16:29 | Emergency (ER) | payer MEDICAID ==
[2019-01-12 17:00] LABS: ABSOLUTE BASOPHILS # (AUTO) 0.1 10^3/uL (0.0-0.2); ABSOLUTE LYMPHOCYTES (AUTO) 1.8 10^3/uL (0.5-4.7); ABSOLUTE MONOCYTES (AUTO) 0.4 10^3/uL (0.1-1.4); ABSOLUTE NEUT (AUTO) 6.4 10^3/uL (1.7-8.2); BASOPHILS % (AUTO) 1.1 % (0-2); EOSINOPHILS % (AUTO) 0.5 % (0-6); HEMATOCRIT 41.1 % (37.9-51.0); MEAN CORPUSCULAR HEMOGLOBIN 29.5 pg (27.0-33.4); MEAN CORPUSCULAR HGB CONC 34.1 g/dL (32.0-36.0); MEAN CORPUSCULAR VOLUME 87 fl (80-97); MONOCYTES % (AUTO) 4.4 % (3-13); PLATELET COUNT 363 10^3/uL (150-450); RED BLOOD COUNT 4.75 10^6/uL (4.35-5.55); RED CELL DISTRIBUTION WIDTH 13.9 % (11.5-14.0); TOTAL CELLS COUNTED % (AUTO) 100 %; WHITE BLOOD COUNT 8.7 10^3/uL (4.0-10.5)
--- NOTE | 2019-01-12 17:06 | RADIOLOGY REPORT (SQ) ---
EXAM DESCRIPTION: CHEST SINGLE VIEW COMPLETED DATE/TIME: 01/12/2019 4:41 pm REASON FOR STUDY: Stroke-like symptoms protocol COMPARISON: AP chest 01/11/2019 EXAM PARAMETERS: NUMBER OF VIEWS: One view. TECHNIQUE: Single frontal radiographic view of the chest acquired. RADIATION DOSE: NA LIMITATIONS: None. FINDINGS: LUNGS AND PLEURA: No opacities, masses or pneumothorax. No pleural effusion. MEDIASTINUM AND HILAR STRUCTURES: No masses. Contour normal. HEART AND VASCULAR STRUCTURES: Heart normal in size. Normal vasculature. BONES: No acute findings. HARDWARE: None in the chest. OTHER: No other significant finding. IMPRESSION: NO ACUTE RADIOGRAPHIC FINDING IN THE CHEST. TECHNICAL DOCUMENTATION: JOB ID: [id number] [employer]- All Rights Reserved Reading location - IP/workstation name: [email or web address]
[2019-01-12 17:18] LABS: ALANINE AMINOTRANSFERASE 22 U/L (21-72); ALBUMIN 4.6 g/dL (3.5-5.0); ALCOHOL < 10 mg/dL (NONE DETECTED); ALKALINE PHOSPHATASE 57 U/L (38-126); ANION GAP 12 (5-19); ASPARTATE AMINO TRANSFERASE 18 U/L (17-59); BILIRUBIN,DIRECT 0.3 mg/dL (0.0-0.4); BILIRUBIN,TOTAL 0.5 mg/dL (0.2-1.3); BLOOD UREA NITROGEN 16 mg/dL (7-20); CALCIUM 9.8 mg/dL (8.4-10.2); CARBON DIOXIDE 28 mmol/L (22-30); CHLORIDE 97 mmol/L (98-107); GLUCOSE 284 mg/dL (75-110); POTASSIUM 4.1 mmol/L (3.6-5.0); SODIUM 137.4 mmol/L (137-145); TOTAL PROTEIN 7.4 g/dL (6.3-8.2)
--- NOTE | 2019-01-12 17:37 | RADIOLOGY REPORT (SQ) ---
EXAM DESCRIPTION: CT HEAD WITHOUT COMPLETED DATE/TIME: 01/12/2019 5:20 pm REASON FOR STUDY: AMS COMPARISON: 01/11/2019 TECHNIQUE: Axial images acquired through the brain without intravenous contrast. Images reviewed wi th bone, brain and subdural windows. Images stored on PACS. All CT scanners at this facility use dose modulation, iterative reconstruction, and/or weight based d osing when appropriate to reduce radiation dose to as low as reasonably achievable (ALARA). [facility]: Dose Right [facility]: CareDose [facility]: Dose Right [facility]: Teradose 4D [facility]: [employer] RADIATION DOSE: mGy. LIMITATIONS: None. FINDINGS: VENTRICLES: Normal size and contour. CEREBRUM: No masses. No hemorrhage. No midline shift. No evidence for acute infarction. Normal gra y/white matter differentiation. No areas of low density in the white matter. CEREBELLUM: No masses. No hemorrhage. No alteration of density. No evidence for acute infarction. EXTRAAXIAL SPACES: No fluid collections. No masses. ORBITS AND GLOBE: No intra- or extraconal masses. Normal contour of globe without masses. CALVARIUM: No fracture. PARANASAL SINUSES: No fluid or mucosal thickening. SOFT TISSUES: No mass or hematoma. OTHER: No other significant finding. IMPRESSION: No acute intracranial findings. EVIDENCE OF ACUTE STROKE: NO. COMMENT: Quality ID # 436: Final reports with documentation of one or more dose reduction techniques (e.g., Automated exposure control, adjustment of the mA and/or kV according to patient size, use of iterative reconstruction technique) TECHNICAL DOCUMENTATION: JOB ID: [id number] [place]-72 2010 [employer]- All Rights Reserved Reading location - IP/workstation name: [email or web address] [email or web address]
[2019-01-12 18:53] LABS: APPEARANCE,URINE CLEAR; BILIRUBIN,URINE NEGATIVE (NEGATIVE); COLOR,URINE YELLOW; GLUCOSE, URINE >=500 mg/dL (NEGATIVE); KETONES,URINE 20 mg/dL (NEGATIVE); LEUKOCYTE ESTERASE,URINE NEGATIVE (NEGATIVE); NITRITE,URINE NEGATIVE (NEGATIVE); PROTEIN,URINE NEGATIVE (NEGATIVE); URINE SPECIFIC GRAVITY 1.026; UROBILINOGEN,URINE NEGATIVE mg/dL (<2.0)
[2019-01-12 19:14] LABS: URINE AMPHETAMINES SCREEN NEGATIVE; URINE BARBITURATES SCREEN NEGATIVE; URINE BENZODIAZEPINES SCREEN NEGATIVE; URINE COCAINE SCREEN NEGATIVE; URINE MARIJUANA (THC) SCREEN UNCONFIRMED POSITIVE; URINE METHADONE SCREEN NEGATIVE; URINE PHENCYCLIDINE SCREEN NEGATIVE
--- NOTE | 2019-01-12 19:18 | RADIOLOGY REPORT (SQ) ---
EXAM DESCRIPTION: CTA HEAD COMPLETED DATE/TIME: 01/12/2019 6:46 pm REASON FOR STUDY: headache, vomiting COMPARISON: None. TECHNIQUE: Post IV contrast scanning, thin section axial imaging through the brain to evaluate the a rterial structures. Source and MIP images are saved and reviewed on PACS. Advanced 3D imaging as volume-rendering, MIPs, SSD performed? yes All CT scanners at this facility use dose modulation, iterative reconstruction, and/or weight based d osing when appropriate to reduce radiation dose to as low as reasonably achievable (ALARA). [facility]: Dose Right [facility]: CareDose [facility]: Dose Right [facility]: Teradose 4D [facility]: [employer] CONTRAST TYPE AND DOSE: 70 mL Omnipaque 350- low osmolar. RENAL FUNCTION: BUN 16 creatinine 0.88 LIMITATIONS: None. FINDINGS: [place]: The anterior, middle, posterior cerebral arteries are all patent. No ev idence of aneurysm or focal stenosis. POSTERIOR CIRCULATION: The distal vertebral arteries are patent as is the basilar artery. No aneurysm . BRAIN: No gross enhancing lesions as visualized. The superior cerebral hemispheres are not included in the field of view. BONES: Intact as visualized. SINUSES: No fluid or mucosal thickening. OTHER: No other significant finding. IMPRESSION: NO CTA EVIDENCE OF STENOSIS OR ANEURYSM OF THE [place]. TECHNICAL DOCUMENTATION: JOB ID: [id number] Quality ID # 436: Final reports with documentation of one or more dose reduction techniques (e.g., Au tomated exposure control, adjustment of the mA and/or kV according to patient size, use of iterative reconstruction technique) 2010 [employer]- All Rights Reserved Reading location - IP/workstation name: [email or web address]
--- NOTE | 2019-01-12 19:25 | RADIOLOGY REPORT (SQ) ---
EXAM DESCRIPTION: CTA NECK COMPLETED DATE/TIME: 01/12/2019 6:46 pm REASON FOR STUDY: headache, vomiting COMPARISON: None. TECHNIQUE: Axial dynamic scanning technique with dynamic contrast enhancement through the extra-scrap breaker nial carotid and vertebral arteries. Multiplanar reconstruction. 3-D MIPS and Volume-rendered imag es acquired at the workstation and saved to PACS. Images are reviewed in soft tissue, bone, lung w indows. All CT scanners at this facility use dose modulation, iterative reconstruction, and/or weight based d osing when appropriate to reduce radiation dose to as low as reasonably achievable (ALARA). [facility]: Dose Right [facility]: CareDose [facility]: Dose Right [facility]: Teradose 4D [facility]: [employer] CONTRAST TYPE AND DOSE: contrast/concentration: Isovue 350.00 mg/ml; Total Contrast Delivered: 70.0 ml; Total Saline Delivered: 75.0 ml RENAL FUNCTION: BUN 16 creatinine 0.88 LIMITATIONS: None. FINDINGS: AORTIC ARCH: Normal three-vessel origin. Bilateral subclavian arteries are patent. No d issection. RIGHT CAROTIDS: Patent common, internal and external carotid arteries without suggestion of significa nt stenosis or irregular plaque. No dissection. Tortuous ICA RIGHT VERTEBRAL: Patent. No dissection. LEFT CAROTIDS: Patent common, internal and external carotid arteries without suggestion of significan t stenosis or irregular plaque. No dissection. Tortuous ICA LEFT VERTEBRAL: Patent. No dissection. OTHER: No other significant finding. OTHER: 3-D reconstructions confirm findings. IMPRESSION: No significant stenoses of the extracranial carotid arteries and vertebral arteries. Th e internal carotid arteries are tortuous. COMMENT: Quality ID #[id number]: Measurements of distal internal carotid diameter were used as the denomina tor for stenosis measurement. TECHNICAL DOCUMENTATION: JOB ID: [id number] Quality ID # [id number]: Final reports with documentation of one or more dose reduction techniques (e.g., Au tomated exposure control, adjustment of the mA and/or kV according to patient size, use of iterative reconstruction technique) 2010 [employer]- All Rights Reserved Reading location - IP/workstation name: [email or web address]
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
[2019-01-12 19:52] VITALS: BP 183/117
== END 2019-01-12 19:52 | disposition home or self-care (01) ==
LOC: ER 16:29
DX: R41.0 Disorientation, unspecified (principal); E11.65 Type 2 diabetes mellitus with hyperglycemia; T38.3X6A Underdosing of insulin and oral hypoglycemic [antidiabetic] drugs, initial encounter; Z91.14 Patient's other noncompliance with medication regimen; I10 Essential (primary) hypertension; T46.4X6A Underdosing of angiotensin-converting-enzyme inhibitors, initial encounter; R51 Headache; R41.3 Other amnesia; R11.10 Vomiting, unspecified; I77.1 Stricture of artery; F41.1 Generalized anxiety disorder; F31.9 Bipolar disorder, unspecified; Z79.899 Other long term (current) drug therapy; F17.200 Nicotine dependence, unspecified, uncomplicated
CPT/HCPCS: 36415; 70450; 70496; 70498; 71045; 80053; 80307; 81001; 83735; 85025; 99285

== ENCOUNTER 2019-05-09 10:44 | Emergency (ER) | payer MEDICAID ==
[2019-05-09] MEDS ORDERED: NORMAL SALINE 1000 ML 1,000 ML IV ONE (11:02)
[2019-05-09] MEDS ORDERED: ONDANSETRON HCL INJ/PF 4 MG/2 ML SDV IV ONE (11:03)
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
--- NOTE | 2019-05-09 11:28 | RADIOLOGY REPORT (SQ) ---
EXAM DESCRIPTION: TOE RIGHT COMPLETED DATE/TIME: 05/09/2019 11:15 am REASON FOR STUDY: r toe wound COMPARISON: None. NUMBER OF VIEWS: Three views. TECHNIQUE: AP, lateral, and oblique images acquired of the right first toe. LIMITATIONS: None. FINDINGS: MINERALIZATION: Normal. BONES: No acute fracture or dislocation. No worrisome bone lesions. JOINTS: No effusions. SOFT TISSUES: No soft tissue swelling. No foreign body. OTHER: No other significant finding. IMPRESSION: NEGATIVE STUDY OF THE RIGHT TOE. NO RADIOGRAPHIC EVIDENCE OF ACUTE INJURY. COMMENT: SITE OF TRAUMA/COMPLAINT MARKED/STAMP COMPLETED: No TECHNICAL DOCUMENTATION: JOB ID: [id number] [employer]- All Rights Reserved Reading location - IP/workstation name: [email or web address]
[2019-05-09 11:52] LABS: ABSOLUTE BASOPHILS # (AUTO) 0.1 10^3/uL (0.0-0.2); ABSOLUTE EOSINOPHILS # (AUTO) 0.1 10^3/uL (0.0-0.6); ABSOLUTE LYMPHOCYTES (AUTO) 1.7 10^3/uL (0.5-4.7); ABSOLUTE MONOCYTES (AUTO) 0.3 10^3/uL (0.1-1.4); ABSOLUTE NEUT (AUTO) 5.7 10^3/uL (1.7-8.2); EOSINOPHILS % (AUTO) 1.8 % (0-6); HEMATOCRIT 42.7 % (37.9-51.0); HEMOGLOBIN 14.5 g/dL (13.5-17.0); LYMPHOCYTES % (AUTO) 22.1 % (13-45); MEAN CORPUSCULAR HEMOGLOBIN 29.8 pg (27.0-33.4); MEAN CORPUSCULAR HGB CONC 33.9 g/dL (32.0-36.0); MEAN CORPUSCULAR VOLUME 88 fl (80-97); MONOCYTES % (AUTO) 3.6 % (3-13); PLATELET COUNT 358 10^3/uL (150-450); RED BLOOD COUNT 4.85 10^6/uL (4.35-5.55); RED CELL DISTRIBUTION WIDTH 13.6 % (11.5-14.0); SEGMENTED NEUTROPHILS % (AUTO) 71.5 % (42-78); TOTAL CELLS COUNTED % (AUTO) 100 %; WHITE BLOOD COUNT 7.9 10^3/uL (4.0-10.5)
[2019-05-09 11:57] LABS: VENOUS BLOOD HCO3 28.2 mmol/L (20-32); VENOUS BLOOD PCO2 50.2 mmHg (35-63); VENOUS BLOOD PH 7.37 (7.30-7.42)
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
[2019-05-09 12:07] LABS: ALKALINE PHOSPHATASE 59 U/L (38-126); ANION GAP 16 (5-19); ASPARTATE AMINO TRANSFERASE 23 U/L (17-59); BILIRUBIN,DIRECT 0.2 mg/dL (0.0-0.4); BILIRUBIN,TOTAL 0.8 mg/dL (0.2-1.3); BLOOD UREA NITROGEN 12 mg/dL (7-20); CALCIUM 10.4 mg/dL (8.4-10.2); CARBON DIOXIDE 26 mmol/L (22-30); CHLORIDE 96 mmol/L (98-107); GLUCOSE 313 mg/dL (75-110); POTASSIUM 4.8 mmol/L (3.6-5.0); TOTAL PROTEIN 8.4 g/dL (6.3-8.2)
[2019-05-09] MEDS ORDERED: METFORMIN HCL 500 MG TABLET PO ONE (13:08)
[2019-05-09 13:22] VITALS: BP 164/88
== END 2019-05-09 13:28 | disposition home or self-care (01) ==
LOC: ER 10:44
DX: R11.2 Nausea with vomiting, unspecified (principal); B07.0 Plantar wart; E11.9 Type 2 diabetes mellitus without complications; R19.7 Diarrhea, unspecified; R50.9 Fever, unspecified; L98.9 Disorder of the skin and subcutaneous tissue, unspecified; I50.9 Heart failure, unspecified; I11.0 Hypertensive heart disease with heart failure; Z90.49 Acquired absence of other specified parts of digestive tract
CPT/HCPCS: 99284; 96361; 96374; 36415; 82962; 85025; 80053; 82803; 73660; J2405; J3490; J7030

== ENCOUNTER 2019-08-29 11:26 | Inpatient (IN) | payer MEDICAID ==
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
[2019-08-29] MEDS ORDERED: NORMAL SALINE 1000 ML 1,000 ML IV ONE (11:51)
--- NOTE | 2019-08-29 12:36 | RADIOLOGY REPORT (SQ) ---
EXAM DESCRIPTION: FOOT RIGHT COMPLETE COMPLETED DATE/TIME: 08/29/2019 12:26 pm REASON FOR STUDY: Swollen red painful great toe diabetic COMPARISON: 05/09/2019. NUMBER OF VIEWS: Three views. TECHNIQUE: AP, lateral and oblique radiographic images acquired of the right foot. LIMITATIONS: None. FINDINGS: MINERALIZATION: Normal. BONES: No acute fracture or dislocation. Mild irregularity and focal osteopenia at the base of the d istal phalanx of the 1st toe. JOINTS: No effusions. SOFT TISSUES: No soft tissue swelling. No foreign body. OTHER: No other significant finding. IMPRESSION: MILD IRREGULARITY AND FOCAL OSTEOPENIA AT THE BASE OF THE DISTAL PHALANX OF THE 1ST TOE, SOMEWHAT CONCERNING FOR EARLY OSTEOMYELITIS. TECHNICAL DOCUMENTATION: JOB ID: [id number] 2010 [employer]- All Rights Reserved Reading location - IP/workstation name: [email or web address]
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
[2019-08-29] MEDS ORDERED: VANCOMYCIN HCL INJ 1000 MG VIAL IV ONE (13:10)
[2019-08-29] MEDS ORDERED: CEFTRIAXONE 2 GM/D5W RTU 2 GM/50 ML RTUPB IV ONE (13:11)
[2019-08-29] MEDS ORDERED: MORPHINE SULFATE 10 MG/ML INJ IV ONE (13:42)
[2019-08-29 13:45] LABS: ABSOLUTE EOSINOPHILS # (AUTO) 0.1 10^3/uL (0.0-0.6); ABSOLUTE LYMPHOCYTES (AUTO) 1.7 10^3/uL (0.5-4.7); ABSOLUTE MONOCYTES (AUTO) 0.4 10^3/uL (0.1-1.4); ABSOLUTE NEUT (AUTO) 4.7 10^3/uL (1.7-8.2); BASOPHILS % (AUTO) 0.6 % (0-2); EOSINOPHILS % (AUTO) 1.7 % (0-6); HEMATOCRIT 37.9 % (37.9-51.0); HEMOGLOBIN 12.9 g/dL (13.5-17.0); LYMPHOCYTES % (AUTO) 24.3 % (13-45); MEAN CORPUSCULAR HEMOGLOBIN 30.2 pg (27.0-33.4); MEAN CORPUSCULAR HGB CONC 34.1 g/dL (32.0-36.0); MEAN CORPUSCULAR VOLUME 89 fl (80-97); MONOCYTES % (AUTO) 6.1 % (3-13); PLATELET COUNT 366 10^3/uL (150-450); RED BLOOD COUNT 4.28 10^6/uL (4.35-5.55); RED CELL DISTRIBUTION WIDTH 13.2 % (11.5-14.0); SEGMENTED NEUTROPHILS % (AUTO) 67.3 % (42-78); TOTAL CELLS COUNTED % (AUTO) 100 %; WHITE BLOOD COUNT 6.9 10^3/uL (4.0-10.5)
[2019-08-29 13:52] LABS: VENOUS BLOOD BASE EXCESS 1.5 mmol/L; VENOUS BLOOD HCO3 29.6 mmol/L (20-32); VENOUS BLOOD PH 7.32 (7.30-7.42)
[2019-08-29 14:03] LABS: ALBUMIN 4.2 g/dL (3.5-5.0); ALKALINE PHOSPHATASE 58 U/L (38-126); ANION GAP 10 (5-19); ASPARTATE AMINO TRANSFERASE 20 U/L (17-59); BILIRUBIN,TOTAL 0.4 mg/dL (0.2-1.3); BLOOD UREA NITROGEN 4 mg/dL (7-20); CALCIUM 9.5 mg/dL (8.4-10.2); CARBON DIOXIDE 30 mmol/L (22-30); CHLORIDE 98 mmol/L (98-107); GLUCOSE 304 mg/dL (75-110); TOTAL PROTEIN 7.2 g/dL (6.3-8.2)
[2019-08-29] MEDS ORDERED: DEXTROSE 50%-WATER 25 GM/50 ML DISP.SYRIN IV PRN ×2 (14:44)
[2019-08-29] MEDS ORDERED: DEXTROSE 40% GEL 15 GM TUBE PO PRN ×2 (14:44)
[2019-08-29] MEDS ORDERED: GLUCAGON,HUMAN RECOMB 1 MG INJ IM PRN (14:44)
[2019-08-29] MEDS ORDERED: VANCOMYCIN HCL 0 MG in DEXTROSE 5%-WATER 250 ML IV NR (14:45)
[2019-08-29] MEDS ORDERED: ACETAMINOPHEN 325 MG TABLET PO PRN (14:45)
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
[2019-08-29] MEDS ORDERED: (PENDING PHARMACY ID) (Oxycodone Hcl/Acetaminophen [Percocet 7.5-325 Mg Tablet] 1 EACH) PO PRN (16:25)
[2019-08-29] MEDS: HYDRALAZINE HCL INJ/PF 20 MG/1 ML SDV IV PRN (16:56)
[2019-08-29] MEDS: OXYCODONE HCL IR 5 MG TABLET PO PRN ×2 (16:59→23:54)
[2019-08-29] MEDS: OXYCODONE-ACETAMINOPHEN 5-325 MG TABLET PO PRN ×2 (17:00→23:53)
[2019-08-29] MEDS: INSULIN LISPRO 100 UNIT/ML 3 ML VIAL SUBCUT SCH ×2 (17:22→22:17)
[2019-08-29] MEDS: KETOROLAC TROMETHAMINE INJ/PF 30 MG/1 ML SDV IV PRN (20:39)
[2019-08-29] MEDS: CEFEPIME 1 GM/D5W RTU 1 GM/50 ML RTUPB IV SCH (21:05)
[2019-08-29] MEDS: QUETIAPINE FUMARATE 100 MG TABLET PO SCH (21:06)
[2019-08-29] MEDS: HEPARIN SOD (PORCINE) 5,000 UNIT/ML 1 ML VIAL SUBCUT SCH (21:06)
[2019-08-29] MEDS: GABAPENTIN 300 MG CAPSULE PO SCH (21:06)
[2019-08-29] MEDS: TRAZODONE HCL 50 MG TABLET PO SCH (21:06)
[2019-08-29] MEDS ORDERED: INSULIN GLARGINE,HUM.REC.ANLOG 1,000 UNIT/10 ML VIAL SUBCUT SCH (22:00)
[2019-08-29] MEDS ORDERED: INSULIN GLARGINE,HUM.REC.ANLOG 1,000 UNIT/10 ML VIAL (PYX) SUBCUT ONE (22:14)
[2019-08-29] MEDS: VANCOMYCIN HCL 1,250 MG in DEXTROSE 5%-WATER 250 ML IV SCH (22:16)
[2019-08-30] MEDS: GABAPENTIN 300 MG CAPSULE PO SCH ×3 (05:03→21:15)
[2019-08-30] MEDS: HEPARIN SOD (PORCINE) 5,000 UNIT/ML 1 ML VIAL SUBCUT SCH ×3 (05:06→21:14)
[2019-08-30] MEDS: VANCOMYCIN HCL 1,250 MG in DEXTROSE 5%-WATER 250 ML IV SCH ×2 (05:07→13:16)
[2019-08-30] MEDS: KETOROLAC TROMETHAMINE INJ/PF 30 MG/1 ML SDV IV PRN ×3 (05:07→18:51)
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
[2019-08-30] MEDS ORDERED: KETOROLAC TROMETHAMINE INJ/PF 30 MG/1 ML SDV IV ONE (07:00)
[2019-08-30] MEDS ORDERED: LIDOCAINE 1% INJ-PF (10 MG/ML) 30 ML SDV ONE (09:16)
[2019-08-30] MEDS ORDERED: LIDOCAINE 1% INJ-PF (10 MG/ML) 30 ML SDV INJ ONE (09:40)
[2019-08-30] MEDS ORDERED: DIPHENHYDRAMINE HCL 50 MG/ML VIAL IV PRN (09:48)
[2019-08-30] MEDS ORDERED: OXYCODONE-ACETAMINOPHEN 5-325 MG TABLET PO PRN ×2 (09:48)
[2019-08-30] MEDS ORDERED: FENTANYL CITRATE INJ/PF 100 MCG/2 ML AMPUL IV PRN ×3 (09:48)
[2019-08-30] MEDS ORDERED: PROMETHAZINE HCL INJ 25 MG/1 ML VIAL IV PRN ×2 (09:48)
[2019-08-30] MEDS ORDERED: ONDANSETRON HCL INJ/PF 4 MG/2 ML SDV IV PRN (09:48)
[2019-08-30] MEDS ORDERED: MEPERIDINE HCL/PF INJ 25 MG/1 ML DISP.SYRIN IV PRN (09:48)
[2019-08-30] MEDS ORDERED: MORPHINE SULFATE 10 MG/ML INJ IV PRN (09:48)
--- NOTE | 2019-08-30 10:12 | Operative Report ---
Operative Report DATE OF SURGERY: 08/30/19 PREOPERATIVE DIAGNOSIS: 1. Infected left great toe with paronychia. 2. Diabe cody mellitus POSTOPERATIVE DIAGNOSIS: Same OPERATION: 1. Focused ultrasound of the left foot with a variable frequency transducer. 2. Complete excision of nail bed, debridement of nail fold nail groove and nail matrix SURGEON: JAEL DONNELLY ANESTHESIA: LMAC TISSUE REMOVED OR ALTERED: Soft tissue and nail left great toe COMPLICATIONS: None ESTIMATED BLOOD LOSS: Scant INTRAOPERATIVE FINDINGS: See below PROCEDURE: The patient was taken the preop holding area after marking the left foot to the main operating where LMAC anesthesia was induced. The left foot was prepped and draped sterile fashion. Surgical plan surgical timeout were conducted. Variable frequency linear transducer used to scan the left foot. The findings were significant for both echoic areas on the sole aspect of the left great toe, just proximal to the nail fold. There was no fluid collection on the dorsum of the left foot. The left great toe was anesthetized with 1% plain lidocaine. A transverse incision was made over the left toe at the base of the nail fold. There was no melia pus but watery fluid. I then excised the lateral folds, and then remove the entire nail matrix. Underlying soft tissue was cultured for Gram stain and sensitivity. Curette was used to clear around the lateral nail gutters, and debrided the matrix. No counterincisions were made. I felt the operation was complete. Wound was irrigated with saline, and open area dressed with Xeroform, 4 x 4's, and Kerlix. Patient tolerated procedure well, taken recovery in stable condition.
[2019-08-30] MEDS: INSULIN LISPRO 100 UNIT/ML 3 ML VIAL SUBCUT SCH ×4 (10:56→21:15)
[2019-08-30] MEDS: PAROXETINE HCL 20 MG TABLET PO SCH (11:02)
[2019-08-30] MEDS: LOSARTAN POTASSIUM 50 MG TABLET PO SCH (11:02)
[2019-08-30] MEDS: CEFEPIME 1 GM/D5W RTU 1 GM/50 ML RTUPB IV SCH ×2 (11:03→21:14)
[2019-08-30] MEDS ORDERED: FENTANYL CITRATE INJ/PF 100 MCG/2 ML AMPUL ONE (11:53)
[2019-08-30] MEDS ORDERED: MIDAZOLAM 2 MG/2 ML INJ ONE (11:53)
[2019-08-30] MEDS ORDERED: ONDANSETRON HCL INJ/PF 4 MG/2 ML SDV ONE (11:54)
[2019-08-30] MEDS ORDERED: DEXMEDETOMIDINE INJ 80 MCG/20 ML VIAL IV ONE (11:54)
[2019-08-30] MEDS ORDERED: PROPOFOL INJ 200 MG/20 ML VIAL IV ONE (12:03)
[2019-08-30 14:29] LABS: VANCOMYCIN,TROUGH 21.9 ug/mL (5.0-20.0)
[2019-08-30] MEDS: OXYCODONE-ACETAMINOPHEN 5-325 MG TABLET PO PRN ×2 (14:37→20:53)
[2019-08-30] MEDS: OXYCODONE HCL IR 5 MG TABLET PO PRN ×2 (14:37→20:54)
--- NOTE | 2019-08-30 15:12 | PDOC PROGRESS REPORT ---
Subjective Progress Note for:: 08/30/19 Subjective:: This a 43-year-old male who was admitted for an infected left big toe, left leg cellulitis with questionable early osteomyelitis. No acute event overnight. Patient just got back from the OR and had complete excision of nail bed and debridement. He says overall he feels better today. Denies other acute complaints. Reason For Visit: OSTEOMYELITIS Physical Exam Vital Signs: Temp Pulse Resp BP Pulse Ox 97.8 F 72 13 115/75 94 08/30/19 10:38 08/30/19 10:38 08/30/19 10:38 08/30/19 10:38 08/30/19 10:38 Intake & Output 08/29/19 08/30/19 08/31/19 06:59 06:59 06:59 Intake Total 1940 450 Output Total 5 Balance 1940 445 Weight 155 lb 13.869 oz General appearance: PRESENT: no acute distress, well-developed, well-nourished Head exam: PRESENT: atraumatic, normocephalic Eye exam: PRESENT: conjunctiva pink, EOMI, PERRLA. ABSENT: scleral icterus Ear exam: PRESENT: normal external ear exam Mouth exam: PRESENT: moist, tongue midline Neck exam: ABSENT: carotid bruit, JVD, lymphadenopathy, thyromegaly Respiratory exam: PRESENT: clear to auscultation neil. ABSENT: rales, rhonchi, wheezes Cardiovascular exam: PRESENT: RRR. ABSENT: diastolic murmur, rubs, systolic murmur Pulses: PRESENT: normal dorsalis pedis pul GI/Abdominal exam: PRESENT: normal bowel sounds, soft. ABSENT: distended, guarding, mass, organolmegaly, rebound, tenderness Rectal exam: PRESENT: deferred Extremities exam: PRESENT: other - post op dressing in place Neurological exam: PRESENT: alert, awake, oriented to person, oriented to place, oriented to time, oriented to situation, CN II-XII grossly intact. ABSENT: motor sensory deficit Results Laboratory Results: 08/29/19 13:20 08/29/19 13:20 08/29/19 13:20 C-Reactive Protein 47.6 H Impressions: Foot X-Ray 08/29/19 11:50 IMPRESSION: MILD IRREGULARITY AND FOCAL OSTEOPENIA AT THE BASE OF THE DISTAL PHALANX OF THE 1ST TOE, SOMEWHAT CONCERNING FOR EARLY OSTEOMYELITIS. Assessment and Plan - Diagnosis (1) Cellulitis of left lower leg Is this a current diagnosis for this admission?: Yes Plan: Continue IV antibiotics. S/P complete excision of nail bed and debridement of left big toe. (2) Uncontrolled type 2 diabetes mellitus Is this a current diagnosis for this admission?: Yes Plan: Patient has been noncompliant to his insulin regimen. Restarted on Lantus. Patient counseled in length about compliance to an insulin-based regimen. Increase Lantus to 12 u HS. (3) Hypertension Qualifiers: Hypertension type: essential hypertension Qualified Code(s): I10 - Essential (primary) hypertension Is this a current diagnosis for this admission?: Yes Plan: Controlled. - Time Time Spent with patient: 25-34 minutes
[2019-08-30] MEDS: TRAZODONE HCL 50 MG TABLET PO SCH (21:15)
[2019-08-30] MEDS: QUETIAPINE FUMARATE 100 MG TABLET PO SCH (21:15)
[2019-08-30] MEDS: INSULIN GLARGINE,HUM.REC.ANLOG 1,000 UNIT/10 ML VIAL SUBCUT SCH (21:22)
[2019-08-30] MEDS: HYDRALAZINE HCL INJ/PF 20 MG/1 ML SDV IV PRN (22:05)
[2019-08-31] MEDS: VANCOMYCIN HCL 1,000 MG in DEXTROSE 5%-WATER 250 ML IV SCH ×3 (02:21→17:05)
[2019-08-31] MEDS: OXYCODONE HCL IR 5 MG TABLET PO PRN ×3 (03:10→18:59)
[2019-08-31] MEDS: OXYCODONE-ACETAMINOPHEN 5-325 MG TABLET PO PRN ×3 (03:12→18:58)
[2019-08-31] MEDS: GABAPENTIN 300 MG CAPSULE PO SCH ×3 (05:37→21:20)
[2019-08-31] MEDS: HEPARIN SOD (PORCINE) 5,000 UNIT/ML 1 ML VIAL SUBCUT SCH ×3 (05:37→21:20)
[2019-08-31] MEDS: KETOROLAC TROMETHAMINE INJ/PF 30 MG/1 ML SDV IV PRN (07:39)
[2019-08-31] MEDS: INSULIN LISPRO 100 UNIT/ML 3 ML VIAL SUBCUT SCH ×4 (09:07→23:05)
[2019-08-31] MEDS: PAROXETINE HCL 20 MG TABLET PO SCH (09:08)
[2019-08-31] MEDS: LOSARTAN POTASSIUM 50 MG TABLET PO SCH (09:10)
[2019-08-31] MEDS: CEFEPIME 1 GM/D5W RTU 1 GM/50 ML RTUPB IV SCH ×2 (09:14→21:20)
--- NOTE | 2019-08-31 13:57 | PDOC PROGRESS REPORT ---
Subjective Progress Note for:: 08/31/19 Subjective:: No complaints. Feels well. Reason For Visit: OSTEOMYELITIS Physical Exam Vital Signs: Temp Pulse Resp BP Pulse Ox 97.8 F 88 17 99/63 L 96 08/31/19 07:29 08/31/19 07:29 08/31/19 07:29 08/31/19 07:29 08/31/19 07:29 Intake & Output 08/30/19 08/31/19 09/01/19 06:59 06:59 06:59 Intake Total 1940 3354 300 Output Total 5 Balance 1940 3349 300 Weight 70.7 kg 70.7 kg General appearance: PRESENT: no acute distress, cooperative Respiratory exam: PRESENT: clear to auscultation neil Cardiovascular exam: PRESENT: RRR Extremities exam: PRESENT: other - Great toe wound appears very clean with no fluctuance and no pus. Very subtle surrounding erythema with no crepitus. Results Laboratory Results: 08/29/19 13:20 08/29/19 13:20 Impressions: Foot X-Ray 08/29/19 11:50 IMPRESSION: MILD IRREGULARITY AND FOCAL OSTEOPENIA AT THE BASE OF THE DISTAL PHALANX OF THE 1ST TOE, SOMEWHAT CONCERNING FOR EARLY OSTEOMYELITIS. Assessment & Plan - Diagnosis (1) Great toe diabetic infection Is this a current diagnosis for this admission?: Yes Plan: Status post toe nail removal. Wound looks very good. Will do Xeroform gauze dressing changes. Await culture results. Suspect will be at the discharge the patient home in the next couple of days once the cultures return.
--- NOTE | 2019-08-31 18:10 | Progress Note ---
Provider Note Provider Note: ID telemedicine/remote consultation note Asked to review patient's chart by Pharmacy. Pt not seen or examined. Per chart review, pt is a 43 [id number] with PMH including DM and HTN who presented with redness, swelling and L toe pain developing over the past week with worsening over a few days preceding admission on 08/29/19 to [place]. He denied trauma or puncture to the foot. Pain extended to midfoot. He denied f/c, n/v, malaise or other symptoms. He was afebrile, not tachycardic or hypotensive. On exam he was noted to have erythema, induration and tenderness to dorsal aspect of L 1st toe. The affected area appeared to be the proximal cuticle, and a small amount of fluctuance was appreciated. Laboratory studies included elevated WBC count 12.9, ESR 51, and CRP 47.6. BCx were drawn on 08/29 and negative x <24h. Plain films of the foot were read as showing mild irregularity and focal osteopenia at the base of the distal phalanx of the 1st toe. On 08/30/19 pt underwent complete excision of nail bed, debridement of nail fold, groove and matrix for infected L great toe with paronychia; no melia pus was encountered in the OR but watery fluid and culture was obtained from the underlying soft tissue. This culture is pending. Gram stain shows 2+ GPCs. Impression/Recommendations Paronychia and cellulitis involving 1st L toe Osteomyelitis is possible, but it does not appear to be likely. The ESR is elevated but not as high as is typical with a diabetic foot osteomyelitis. The location of the radiographic abnormalities at the base of the distal phalanx is not typical for osteomyelitis secondary to contiguous spread from a paronychia (usually this would involve the distal aspect.) If the clinical impression of providers examining the patient is in agreement, it would be appropriate to treat the patient with a short course of antibiotic therapy in keeping with a soft tissue infection. Typically a duration of 7-10 days should suffice. Based on the preliminary data, there are GPCs from the Gram stain and no GNRs. It is reasonable to discontinue cefepime and continue vancomycin for now. I anticipate that an oral agent like Bactrim 1 DS BID should provide adequate coverage, but awaiting culture result would be the best way to know that antibiotic therapy is effective. Konrad Skinner MD [facility] Infectious Diseases pager [phone]
--- NOTE | 2019-08-31 18:32 | PDOC PROGRESS REPORT ---
Subjective Progress Note for:: 08/31/19 Subjective:: No adverse events overnight. The patient was not in his room when I came around. Apparently his father has been admitted to the third floor and that is where he was, so I went downstairs to see him in that room. He has no new complaints. He said his foot feels better. Reason For Visit: OSTEOMYELITIS Physical Exam Vital Signs: Temp Pulse Resp BP Pulse Ox 98.1 F 96 18 144/88 H 97 08/31/19 11:22 08/31/19 11:22 08/31/19 11:22 08/31/19 11:22 08/31/19 11:22 Intake & Output 08/30/19 08/31/19 09/01/19 06:59 06:59 06:59 Intake Total 1939 3354 300 Output Total 5 Balance 1939 3349 300 Weight 70.7 kg 70.7 kg General appearance: PRESENT: no acute distress, well-developed, well-nourished Respiratory exam: PRESENT: clear to auscultation neil. ABSENT: rales, rhonchi, wheezes Cardiovascular exam: PRESENT: RRR. ABSENT: diastolic murmur, rubs, systolic mur mur Pulses: PRESENT: normal dorsalis pedis pul GI/Abdominal exam: PRESENT: normal bowel sounds, soft. ABSENT: distended, guarding, mass, organolmegaly, rebound, tenderness Extremities exam: PRESENT: other - post op dressing in place Neurological exam: PRESENT: alert, awake, oriented to person, oriented to place, oriented to time, oriented to situation Results Laboratory Results: 08/29/19 13:20 08/29/19 13:20 Impressions: Foot X-Ray 08/29/19 11:50 IMPRESSION: MILD IRREGULARITY AND FOCAL OSTEOPENIA AT THE BASE OF THE DISTAL PHALANX OF THE 1ST TOE, SOMEWHAT CONCERNING FOR EARLY OSTEOMYELITIS. Assessment and Plan - Diagnosis (1) Great toe diabetic infection Is this a current diagnosis for this admission?: Yes Plan: Status post debridement. Infectious disease recommendations are noted. Osteomyelitis is considered less likely. Will likely be able to discharge this patient home on Bactrim. Also, his diabetes is uncontrolled, and I have advised him that he will likely be going home on some insulin. - Time Time Spent with patient: 15-24 minutes
[2019-08-31] MEDS: QUETIAPINE FUMARATE 100 MG TABLET PO SCH (21:19)
[2019-08-31] MEDS: TRAZODONE HCL 50 MG TABLET PO SCH (21:20)
[2019-08-31] MEDS: INSULIN GLARGINE,HUM.REC.ANLOG 1,000 UNIT/10 ML VIAL SUBCUT SCH (23:04)
[2019-09-01] MEDS: VANCOMYCIN HCL 1,000 MG in DEXTROSE 5%-WATER 250 ML IV SCH ×2 (02:06→10:21)
[2019-09-01] MEDS: GABAPENTIN 300 MG CAPSULE PO SCH ×2 (05:34→14:04)
[2019-09-01] MEDS: HEPARIN SOD (PORCINE) 5,000 UNIT/ML 1 ML VIAL SUBCUT SCH (05:34)
[2019-09-01] MEDS: INSULIN LISPRO 100 UNIT/ML 3 ML VIAL SUBCUT SCH ×2 (08:54→14:05)
[2019-09-01] MEDS: LOSARTAN POTASSIUM 50 MG TABLET PO SCH (09:44)
[2019-09-01] MEDS: PAROXETINE HCL 20 MG TABLET PO SCH (09:44)
[2019-09-01] MEDS: CEFEPIME 1 GM/D5W RTU 1 GM/50 ML RTUPB IV SCH (09:44)
--- NOTE | 2019-09-01 10:05 | PDOC PROGRESS REPORT ---
Subjective Progress Note for:: 09/01/19 Reason For Visit: OSTEOMYELITIS Physical Exam Vital Signs: Temp Pulse Resp BP Pulse Ox 98.6 F 88 16 130/80 H 95 09/01/19 07:34 09/01/19 07:34 09/01/19 07:34 09/01/19 07:34 09/01/19 07:34 Intake & Output 08/31/19 09/01/19 09/02/19 06:59 06:59 06:59 Intake Total 3354 3077 Output Total 5 Balance 3349 3077 Weight 70.7 kg 70.3 kg Results Laboratory Results: 08/29/19 13:20 Impressions: Foot X-Ray 08/29/19 11:50 IMPRESSION: MILD IRREGULARITY AND FOCAL OSTEOPENIA AT THE BASE OF THE DISTAL PHALANX OF THE 1ST TOE, SOMEWHAT CONCERNING FOR EARLY OSTEOMYELITIS. Assessment & Plan - Diagnosis (1) Diabetic foot infection Is this a current diagnosis for this admission?: Yes - Plan Summary Plan Summary: This is a 43-year-old male status post incision and drainage of a great toe abscess. He also had removal of the toenail, to facilitate drainage. Of note, I am not impressed with the amount of "osteomyelitis" seen on x-ray. The patient is doing very well. His pain has subsided. Continue antibiotics. Continue dressing changes. Continue tight glucose control. Follow-up with [facility] in 7 to 10 days. Okay to shower. Surgery will sign off at this time. I believe the patient is fit for discharge from a surgical standpoint.
[2019-09-01 10:28] LABS: VANCOMYCIN,TROUGH 14.5 ug/mL (5.0-20.0)
[2019-09-01 13:41] VITALS: BP 166/95
--- NOTE | 2019-09-01 13:47 | Progress Note ---
Provider Note Provider Note: ID Telephone/Remote Consultation Follow Up Note Culture preliminary result updated as 2+ GPCs and 4+ Anaerococcus (formerly Peptostreptococcus). The most important factors are that there has been drainage of the collection and improvement in local signs and symptoms. He is not systemically ill. Based on culture results above and lack of definitive data at present, Augmentin is reasonable - provides anerobic activity, activity against MSSA, streptococci. Further review of the patient's chart shows that he had a prior culture from a foot wound in September 2018 that grew MSSA. With no prior hx of MRSA colonization or infection, I think it is safe to discontinue empiric coverage for MRSA and include activity against what is now known plus MSSA and streptococci. Would still aim to complete 7-10 days of treatment in total. Konrad Skinner MD [facility] Infectious Diseases pager [phone]
--- NOTE | 2019-09-01 15:45 | PDOC DISCHARGE SUMMARY ---
Impression - Admit/DC Date/PCP Admission Date/Primary Care Provider: 08/29/19 14:46 SARITHA HARDY MD Discharge Date: 09/01/19 - Discharge Diagnosis (1) Great toe diabetic infection Is this a current diagnosis for this admission?: Yes (2) Uncontrolled type 2 diabetes mellitus Is this a current diagnosis for this admission?: Yes - Additional Information Resuscitation Status: Full Code Discharge Diet: Diabetic Discharge Activity: Activity As Tolerated Referrals: SARITHA HARDY MD [Primary Care Provider] - 09/08/19 1:15 pm JAEL DONNELLY MD [ACTIVE STAFF] - 09/09/19 10:15 am Prescriptions: Sulfamethoxazole/Trimethoprim [Bactrim Ds Tablet] 1 each PO BID #28 tablet Blood-Glucose Meter [Blood Glucose Monitoring] 1 each AC #1 kit Insulin Lispro [Humalog Kwikpen U-100] 0 - 12 unit SQ AC #1 insuln.pen Insulin Glargine,Hum.rec.anlog [Lantus Insulin 100 Unit/mL Insulin Pen] 15 unit SUBCUT QHS #1 pen Home Medications: Paroxetine HCl [Paxil] 40 mg PO DAILY 10/04/18 Gabapentin 600 mg PO Q8 08/29/19 Oxycodone HCl/Acetaminophen [Percocet 7.5-325 mg Tablet] 1 each PO Q6HP PRN 08/29/19 Quetiapine Fumarate [Quetiapine Fumarate ER] 200 mg PO QHS 08/29/19 Trazodone HCl 150 mg PO QHS 08/29/19 Blood-Glucose Meter [Blood Glucose Monitoring] 1 each AC #1 kit 09/01/19 Insulin Glargine,Hum.rec.anlog [Lantus Insulin 100 Unit/mL Insulin Pen] 15 unit SUBCUT QHS #1 pen 09/01/19 Insulin Lispro [Humalog Kwikpen U-100] 0 - 12 unit SQ AC #1 insuln.pen 09/01/19 Sulfamethoxazole/Trimethoprim [Bactrim Ds Tablet] 1 each PO BID #28 tablet 09/01/19 History of Present Illiness History of Present Illness: FLIEMON VERGARA is a 43 year old male with a past medical history of insulin- dependent diabetes mellitus type 2 with noncompliance to medications, hypertension, history of PTSD and depression who is presenting with left foot pain and swelling. Patient reports that this started out more than a week ago when he noticed swelling and erythema on his left big toe. He says that this slowly progressed and he notices left foot also started to swell. He also noticed slight erythema and pain. Swelling also progressed to involve his left leg. He reported chills but no fever. In the ER, he was noted to have a left lower extremity cellulitis with grossly swollen and tender left big toe. Foot x-ray shows early osteomyelitis of the first phalanx. Patient says that he was on metformin and insulin before and that his PCP referred him to an sweat box attendant. He says that there was a plan to put him on an insulin pump. He admits that he thought that the medications were not working so he stopped using his diabetic regimen for more than a month now. Hospital Course Hospital Course: He was placed on empiric antibiotic coverage and begin to have some improvement. He underwent incision and debridement. It was felt less likely to be an osteomyelitis and more likely just a cellulitis. He will complete a course of treatment with Bactrim. We also started him on an insulin regimen for his uncontrolled diabetes and have sent prescriptions to his pharmacy for Lantus, Humalog, and a glucose monitoring kit. He has used a glucose monitor before and knows how to do it. I recommended that he record his blood sugars when he checks them so when he goes to see Dr. Hardy he can get further recommendations on diabetes management. He got wound care recommendations from surgery. His labs and examination were reassuring and he was discharged in stable condition. Physical Exam Vital Signs: Temp Pulse Resp BP Pulse Ox 98.6 F 88 16 166/95 H 95 09/01/19 13:39 09/01/19 13:39 09/01/19 13:39 09/01/19 13:39 09/01/19 13:39 Intake & Output 08/31/19 09/01/19 09/02/19 06:59 06:59 06:59 Intake Total 3354 3077 Output Total 5 Balance 3349 3077 Weight 70.7 kg 70.3 kg General appearance: PRESENT: no acute distress, well-developed, well-nourished Respiratory exam: PRESENT: clear to auscultation neil. ABSENT: rales, rhonchi, wheezes Cardiovascular exam: PRESENT: RRR. ABSENT: diastolic murmur, rubs, systolic murmur Pulses: PRESENT: normal dorsalis pedis pul GI/Abdominal exam: PRESENT: normal bowel sounds, soft. ABSENT: distended, guarding, mass, organolmegaly, rebound, tenderness Extremities exam: PRESENT: other - post op dressing in place Neurological exam: PRESENT: alert, awake, oriented to person, oriented to place, oriented to time, oriented to situation Results Laboratory Results: WBC 6.9 10^3/uL (4.0-10.5) 08/29/19 13:20 RBC 4.28 10^6/uL (4.35-5.55) L 08/29/19 13:20 Hgb 12.9 g/dL (13.5-17.0) L 08/29/19 13:20 Hct 37.9 % (37.9-51.0) 08/29/19 13:20 MCV 89 fl (80-97) 08/29/19 13:20 MCH 30.2 pg (27.0-33.4) 08/29/19 13:20 MCHC 34.1 g/dL (32.0-36.0) 08/29/19 13:20 RDW 13.2 % (11.5-14.0) 08/29/19 13:20 Plt Count 366 10^3/uL (150-450) 08/29/19 13:20 Lymph % (Auto) 24.3 % (13-45) 08/29/19 13:20 [place] % (Auto) 6.1 % (3-13) 08/29/19 13:20 Eos % (Auto) 1.7 % (0-6) 08/29/19 13:20 Baso % (Auto) 0.6 % (0-2) 08/29/19 13:20 Absolute Neuts (auto) 4.7 10^3/uL (1.7-8.2) 08/29/19 13:20 Absolute Lymphs (auto) 1.7 10^3/uL (0.5-4.7) 08/29/19 13:20 Absolute Monos (auto) 0.4 10^3/uL (0.1-1.4) 08/29/19 13:20 Absolute Eos (auto) 0.1 10^3/uL (0.0-0.6) 08/29/19 13:20 Absolute Basos (auto) 0.0 10^3/uL (0.0-0.2) 08/29/19 13:20 Seg Neutrophils % 67.3 % (42-78) 08/29/19 13:20 ESR 51 mm/hr (0-15) H 08/29/19 13:20 VBG pH 7.32 (7.30-7.42) 08/29/19 13:20 VBG pCO2 59.0 mmHg (35-63) 08/29/19 13:20 VBG HCO3 29.6 mmol/L (20-32) 08/29/19 13:20 VBG Base Excess 1.5 mmol/L 08/29/19 13:20 Sodium 138.2 mmol/L (137-145) 08/29/19 13:20 Potassium 4.0 mmol/L (3.6-5.0) 08/29/19 13:20 Chloride 98 mmol/L (98-107) 08/29/19 13:20 Carbon Dioxide 30 mmol/L (22-30) 08/29/19 13:20 Anion Gap 10 (5-19) 08/29/19 13:20 BUN 4 mg/dL (7-20) L 08/29/19 13:20 Creatinine 0.61 mg/dL (0.52-1.25) 09/01/19 09:33 Est GFR ( Amer) > 60 (>60) 09/01/19 09:33 Est GFR (MDRD) Non-Af > 60 (>60) 09/01/19 09:33 Glucose 304 mg/dL (75-110) H 08/29/19 13:20 POC Glucose 208 mg/dL (70-110) H 09/01/19 12:55 Hemoglobin A1c % 12.4 % (4.7-6.0) H 08/29/19 13:20 Calcium 9.5 mg/dL (8.4-10.2) 08/29/19 13:20 Total Bilirubin 0.4 mg/dL (0.2-1.3) 08/29/19 13:20 Direct Bilirubin 0.0 mg/dL (0.0-0.4) 08/29/19 13:20 Neonat Total Bilirubin Not Reportable 08/29/19 13:20 Neonat Direct Bilirubin Not Reportable 08/29/19 13:20 Neonat Indirect Bili Not Reportable 08/29/19 13:20 AST 20 U/L (17-59) 08/29/19 13:20 ALT 15 U/L (<50) 08/29/19 13:20 Alkaline Phosphatase 58 U/L (38-126) 08/29/19 13:20 C-Reactive Protein 47.6 mg/L (<10.0) H 08/29/19 13:20 Total Protein 7.2 g/dL (6.3-8.2) 08/29/19 13:20 Albumin 4.2 g/dL (3.5-5.0) 08/29/19 13:20 Time Trough Drawn 0933 09/01/19 09:33 Vancomycin Trough 14.5 ug/mL (5.0-20.0) 09/01/19 09:33 Impressions: Foot X-Ray 08/29/19 11:50 IMPRESSION: MILD IRREGULARITY AND FOCAL OSTEOPENIA AT THE BASE OF THE DISTAL PHALANX OF THE 1ST TOE, SOMEWHAT CONCERNING FOR EARLY OSTEOMYELITIS. Plan Time Spent: Greater than 30 Minutes Stroke Is this a Stroke Patient?: No Acute Heart Failure - Is this a Heart Failure Patient?: No
== END 2019-09-01 14:14 | disposition home or self-care (01) | DRG 638 ==
LOC: ER 11:26 → EH 14:46 → 5 15:50
PROVIDERS: ADMIT Internal Medicine; ATTEND Internal Medicine
PROC: 0HBRXZZ Excision of Toe Nail, External Approach (ICD-10-PCS; principal; 2019-08-30 09:30)
DX: E11.69 Type 2 diabetes mellitus with other specified complication (principal); M86.8X7 Other osteomyelitis, ankle and foot; L03.116 Cellulitis of left lower limb; E11.65 Type 2 diabetes mellitus with hyperglycemia; F43.10 Post-traumatic stress disorder, unspecified; I10 Essential (primary) hypertension; F31.9 Bipolar disorder, unspecified; L03.032 Cellulitis of left toe; B95.7 Other staphylococcus as the cause of diseases classified elsewhere; F41.1 Generalized anxiety disorder; Z79.899 Other long term (current) drug therapy; Z79.4 Long term (current) use of insulin; Z91.14 Patient's other noncompliance with medication regimen
CPT/HCPCS: 00400; 36415; 80053; 80202; 82565; 82803; 82962; 83036; 85025; 85652; 86140; 87040; 87070; 87075; 87077; 87186; 87205; 96361; 96365; 96368; 96375; 99284; J0360; J0692; J0696; J1644; J1815; J1885; J2250; J2270; J2405; J2704; J3010; J3370; J3490; J7030; J7060

== ENCOUNTER 2019-09-22 10:05 | Inpatient (IN) | payer MEDICAID ==
[2019-09-22] MEDS ORDERED: DEXAMETHASONE SOD PHOSPHATE INJ 4 MG/1 ML VIAL ONE (10:35)
[2019-09-22] MEDS ORDERED: ONDANSETRON HCL INJ/PF 4 MG/2 ML SDV ONE (10:35)
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
[2019-09-22 11:28] LABS: ABSOLUTE BASOPHILS # (AUTO) 0.1 10^3/uL (0.0-0.2); ABSOLUTE EOSINOPHILS # (AUTO) 0.1 10^3/uL (0.0-0.6); ABSOLUTE MONOCYTES (AUTO) 0.5 10^3/uL (0.1-1.4); ABSOLUTE NEUT (AUTO) 10.7 10^3/uL (1.7-8.2); BASOPHILS % (AUTO) 0.4 % (0-2); EOSINOPHILS % (AUTO) 0.9 % (0-6); HEMATOCRIT 37.9 % (37.9-51.0); HEMOGLOBIN 12.7 g/dL (13.5-17.0); LYMPHOCYTES % (AUTO) 8.3 % (13-45); MEAN CORPUSCULAR HEMOGLOBIN 29.6 pg (27.0-33.4); MEAN CORPUSCULAR HGB CONC 33.4 g/dL (32.0-36.0); MEAN CORPUSCULAR VOLUME 88 fl (80-97); MONOCYTES % (AUTO) 4.4 % (3-13); PLATELET COUNT 438 10^3/uL (150-450); RED BLOOD COUNT 4.29 10^6/uL (4.35-5.55); RED CELL DISTRIBUTION WIDTH 12.8 % (11.5-14.0); TOTAL CELLS COUNTED % (AUTO) 100 %; WHITE BLOOD COUNT 12.4 10^3/uL (4.0-10.5)
--- NOTE | 2019-09-22 11:38 | RADIOLOGY REPORT (SQ) ---
EXAM DESCRIPTION: FOOT LEFT COMPLETE COMPLETED DATE/TIME: 09/22/2019 11:25 am REASON FOR STUDY: Left foot infection diabetes COMPARISON: None. NUMBER OF VIEWS: Three views. TECHNIQUE: AP, lateral and oblique radiographic images acquired of the left foot. LIMITATIONS: None. FINDINGS: MINERALIZATION: Normal. BONES: There is lucency in the distal phalanx of the great toe consistent with osteomyelitis. JOINTS: There is cortical thinning at the interphalangeal joint of the great toe involving the distal phalanx. Infection of the joint cannot be excluded. SOFT TISSUES: Soft tissue edema involving the great toe. OTHER: No other significant finding. IMPRESSION: Findings are consistent with osteomyelitis involving the distal phalanx of the great toe . Possible involvement of the interphalangeal joint of the great toe. TECHNICAL DOCUMENTATION: JOB ID: [id number] 2010 [employer]- All Rights Reserved Reading location - IP/workstation name: [email or web address]
[2019-09-22] MEDS ORDERED: CEFEPIME 2 GM/D5W RTU 2 GM/50 ML RTUPB IV ONE (11:54)
[2019-09-22] MEDS ORDERED: ONDANSETRON HCL INJ/PF 4 MG/2 ML SDV IV ONE (11:54)
[2019-09-22] MEDS ORDERED: MORPHINE SULFATE 10 MG/ML INJ IV ONE (11:54)
[2019-09-22] MEDS ORDERED: VANCOMYCIN HCL INJ 1000 MG VIAL IV ONE (11:55)
[2019-09-22 11:57] LABS: ALBUMIN 4.4 g/dL (3.5-5.0); ALKALINE PHOSPHATASE 75 U/L (38-126); ANION GAP 9 (5-19); ASPARTATE AMINO TRANSFERASE 26 U/L (17-59); BILIRUBIN,TOTAL 0.4 mg/dL (0.2-1.3); BLOOD UREA NITROGEN 11 mg/dL (7-20); CALCIUM 9.9 mg/dL (8.4-10.2); CARBON DIOXIDE 34 mmol/L (22-30); CHLORIDE 93 mmol/L (98-107); GLUCOSE 193 mg/dL (75-110); POTASSIUM 4.8 mmol/L (3.6-5.0); TOTAL PROTEIN 7.6 g/dL (6.3-8.2)
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
[2019-09-22 12:19] LABS: ERYTHROCYTE SEDIMENTATION RATE 82 mm/hr (0-15)
[2019-09-22] MEDS ORDERED: GLUCAGON,HUMAN RECOMB 1 MG INJ SUBCUT PRN (12:52)
[2019-09-22] MEDS ORDERED: DEXTROSE 50%-WATER 25 GM/50 ML DISP.SYRIN IV PRN ×4 (12:52→12:58)
[2019-09-22] MEDS ORDERED: DEXTROSE 40% GEL 15 GM TUBE PO PRN ×4 (12:52→12:58)
[2019-09-22] MEDS ORDERED: HYDRALAZINE HCL INJ/PF 20 MG/1 ML SDV IV PRN (12:58)
[2019-09-22] MEDS ORDERED: GLUCAGON,HUMAN RECOMB 1 MG INJ IM PRN (12:58)
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
[2019-09-22 13:45] LABS: INTERNATIONAL RATION (INR) 1.01; PROTHROMBIN TIME 13.3 SEC (11.4-15.4)
[2019-09-22] MEDS ORDERED: PROPOFOL INJ 200 MG/20 ML VIAL IV ONE (13:45)
[2019-09-22] MEDS ORDERED: FENTANYL CITRATE INJ/PF 100 MCG/2 ML AMPUL ONE (13:45)
[2019-09-22] MEDS ORDERED: MIDAZOLAM 2 MG/2 ML INJ ONE (13:45)
--- NOTE | 2019-09-22 14:02 | RADIOLOGY REPORT (SQ) ---
EXAM DESCRIPTION: VENOUS UNILATERAL LOWER COMPLETED DATE/TIME: 09/22/2019 1:52 pm REASON FOR STUDY: Left calf pain, eval for DVT COMPARISON: 10/03/2018 TECHNIQUE: Dynamic and static [place] scale and color images acquired of the left leg venous system. Se lected spectral images acquired with additional compression and augmentation maneuvers. The contralat eral common femoral vein and saphenofemoral junction were also imaged. Images stored on PACS. LIMITATIONS: None. FINDINGS: COMMON FEMORAL: Normal phasicity, compression and augmentation. No visualized echogenic ma terial on [place] scale. No defects on color images. FEMORAL: Normal compression and augmentation. No visualized echogenic material on [place] scale. No defe cts on color images. POPLITEAL: Normal compression, augmentation. No visualized echogenic material on [place] scale. No defec ts on color images. CALF VESSELS: Normal compression, augmentation. No visualized echogenic material on [place] scale. No de fects on color images. GSV and SSV: Normal compression, augmentation. No visualized echogenic material on [place] scale. No def ects on color images. ANY DEEP VENOUS INSUFFICIENCY: Not evaluated. ANY EVIDENCE OF POPLITEAL CYST: No. OTHER: No other significant finding. CONTRALATERAL COMMON FEMORAL VEIN AND SAPHENOFEMORAL JUNCTION: Normal phasicity, compression and augmentation. No visualized echogenic material on [place] scale. No de fects on color images. IMPRESSION: NO EVIDENCE DVT OR SVT IN THE LEFT LEG. TECHNICAL DOCUMENTATION: JOB ID: [id number] 2010 [employer]- All Rights Reserved Reading location - IP/workstation name: [email or web address]
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
[2019-09-22] MEDS ORDERED: MORPHINE SULFATE 10 MG/ML INJ IV PRN (14:34)
[2019-09-22] MEDS ORDERED: DIPHENHYDRAMINE HCL 50 MG/ML VIAL IV PRN (14:34)
[2019-09-22] MEDS ORDERED: MEPERIDINE HCL/PF INJ 25 MG/1 ML DISP.SYRIN IV PRN (14:34)
[2019-09-22] MEDS ORDERED: ONDANSETRON HCL INJ/PF 4 MG/2 ML SDV IV PRN (14:34)
[2019-09-22] MEDS ORDERED: FENTANYL CITRATE INJ/PF 100 MCG/2 ML AMPUL IV PRN ×3 (14:34)
--- NOTE | 2019-09-22 15:35 | Operative Report ---
Nonrecallable Operative Report DATE OF SURGERY: 09/22/19 PREOPERATIVE DIAGNOSIS: Left great toe diabetic infection POSTOPERATIVE DIAGNOSIS: Left great toe diabetic infection OPERATION: Left great toe amputation SURGEON: RAMILA ANDERSON ANESTHESIA: GA TISSUE REMOVED OR ALTERED: Left great toe COMPLICATIONS: None ESTIMATED BLOOD LOSS: 30 cc INTRAOPERATIVE FINDINGS: See note PROCEDURE: Patient was brought to the operating room awake alert stable condition placed in the operative table supine position induced under general anesthesia. The left foot was prepped and draped in usual sterile fashion. After appropriate timeout site verification the procedure commenced. The left great toe had purulent exudate coming from the nailbed as well as the lateral aspect of it using a marking pen mapped out a elliptical tennis racquet type incision at the base of the first toe. Using a 15 blade came around the great toe from the webspace and then laterally to the mid metatarsal. We carried our dissection down through subcutaneous tissue with a 15 blade the tendons were divided with the 15 blade. The distal phalanx was then removed with the 15 blade and that specimen was removed. Then using the periosteal elevator as we elevated the periosteum off the metatarsal bone. We came across the mid metatarsal with the bone cutter. Hemostasis was obtained with a 2-0 Vicryl placed in the digital arteries in a [id number] fashion. The wound edges bled vigorously. The deep subcutaneous tissue was then reapproximated with interrupted 2-0 Vicryl over the bone which appeared to be healthy. There were number of 2-0 nylon sutures placed loosely and held in place with a endoclips for later delayed primary closure that was through the skin. The wound was packed underneath the sutures with a iodoform gauze packing strip. A sterile dressing was then applied on top of that and the foot was wrapped with a Kerlix wrap and then a Marcell wrap. Patient tolerated the procedure well was awakened in the operating and transferred recovery in stable condition. No complications. Estimated blood loss was 30 cc.
[2019-09-22] MEDS: NORMAL SALINE 1000 ML 1,000 ML IV PRN (17:14)
[2019-09-22] MEDS: INSULIN REG, HUMAN 100 UNIT/ML 3 ML VIAL (PYX) SUBCUT SCH (17:38)
[2019-09-22] MEDS: PANTOPRAZOLE SODIUM 40 MG TABLET.DR PO SCH (17:38)
[2019-09-22] MEDS ORDERED: VANCOMYCIN HCL INJ 1000 MG VIAL IV SCH (18:00)
[2019-09-22] MEDS: OXYCODONE-ACETAMINOPHEN 5-325 MG TABLET PO PRN (18:05)
[2019-09-22] MEDS: MORPHINE SULFATE 10 MG/ML INJ IV PRN (19:57)
[2019-09-22 20:23] LABS: APPEARANCE,URINE CLEAR; BILIRUBIN,URINE NEGATIVE (NEGATIVE); COLOR,URINE STRAW; GLUCOSE, URINE >=500 mg/dL (NEGATIVE); KETONES,URINE TRACE mg/dL (NEGATIVE); PROTEIN,URINE NEGATIVE (NEGATIVE); URINE SPECIFIC GRAVITY 1.014; UROBILINOGEN,URINE NEGATIVE mg/dL (<2.0)
[2019-09-22] MEDS: CEFEPIME HCL 2 GM in DEXTROSE 5%-WATER 50 ML IV SCH (21:49)
[2019-09-22] MEDS ORDERED: CEFEPIME 2 GM/D5W RTU 50 ML IV SCH (22:00)
[2019-09-22] MEDS ORDERED: QUETIAPINE FUMARATE 100 MG TABLET PO ONE (22:45)
[2019-09-22] MEDS: VANCOMYCIN HCL 1,000 MG in DEXTROSE 5%-WATER 250 ML IV SCH (22:56)
[2019-09-23] MEDS: INSULIN REG, HUMAN 100 UNIT/ML 3 ML VIAL (PYX) SUBCUT SCH ×6 (00:21→21:08)
[2019-09-23] MEDS: MORPHINE SULFATE 10 MG/ML INJ IV PRN (00:53)
[2019-09-23] MEDS: NORMAL SALINE 1000 ML 1,000 ML IV PRN (03:27)
[2019-09-23 05:31] LABS: ABSOLUTE LYMPHOCYTES (AUTO) 1.8 10^3/uL (0.5-4.7); ABSOLUTE MONOCYTES (AUTO) 0.6 10^3/uL (0.1-1.4); ABSOLUTE NEUT (AUTO) 7.5 10^3/uL (1.7-8.2); BASOPHILS % (AUTO) 0.4 % (0-2); EOSINOPHILS % (AUTO) 0.2 % (0-6); HEMATOCRIT 32.2 % (37.9-51.0); LYMPHOCYTES % (AUTO) 18.4 % (13-45); MEAN CORPUSCULAR HGB CONC 34.1 g/dL (32.0-36.0); MEAN CORPUSCULAR VOLUME 88 fl (80-97); MONOCYTES % (AUTO) 5.8 % (3-13); PLATELET COUNT 374 10^3/uL (150-450); RED BLOOD COUNT 3.67 10^6/uL (4.35-5.55); RED CELL DISTRIBUTION WIDTH 12.8 % (11.5-14.0); SEGMENTED NEUTROPHILS % (AUTO) 75.2 % (42-78); TOTAL CELLS COUNTED % (AUTO) 100 %
[2019-09-23] MEDS: VANCOMYCIN HCL 1,000 MG in DEXTROSE 5%-WATER 250 ML IV SCH ×3 (05:52→21:51)
[2019-09-23] MEDS: PANTOPRAZOLE SODIUM 40 MG TABLET.DR PO SCH ×2 (05:52→16:33)
[2019-09-23] MEDS: OXYCODONE-ACETAMINOPHEN 5-325 MG TABLET PO PRN ×4 (05:52→23:23)
[2019-09-23 05:55] LABS: ALBUMIN 3.5 g/dL (3.5-5.0); ALKALINE PHOSPHATASE 72 U/L (38-126); ANION GAP 8 (5-19); ASPARTATE AMINO TRANSFERASE 21 U/L (17-59); BILIRUBIN,TOTAL 0.3 mg/dL (0.2-1.3); BLOOD UREA NITROGEN 12 mg/dL (7-20); CALCIUM 9.2 mg/dL (8.4-10.2); CARBON DIOXIDE 32 mmol/L (22-30); CHLORIDE 99 mmol/L (98-107); GLUCOSE 202 mg/dL (75-110); TOTAL PROTEIN 6.2 g/dL (6.3-8.2)
[2019-09-23] MEDS: GABAPENTIN 300 MG CAPSULE PO SCH (09:19)
[2019-09-23] MEDS: PAROXETINE HCL 20 MG TABLET PO SCH (09:20)
[2019-09-23] MEDS: CEFEPIME HCL 2 GM in DEXTROSE 5%-WATER 50 ML IV SCH ×2 (09:51→21:06)
[2019-09-23] MEDS ORDERED: PAROXETINE HCL 20 MG TABLET PO SCH (10:00)
[2019-09-23] MEDS ORDERED: GABAPENTIN 300 MG CAPSULE PO SCH (10:00)
--- NOTE | 2019-09-23 11:07 | PDOC PROGRESS REPORT ---
Subjective Progress Note for:: 09/23/19 Reason For Visit: LT GREAT TOE OSTEOMYELITIS He reports pain in his left foot. Physical Exam Vital Signs: Temp Pulse Resp BP Pulse Ox 99.4 F 88 18 124/81 96 09/23/19 07:53 09/23/19 07:53 09/23/19 07:53 09/23/19 07:53 09/23/19 07:53 Pulse Oximeter Continuous Start: 09/22/19 12:53 Freq: RTQ4 Status: Active Protocol: Document 09/23/19 04:00 CMI (Rec: 09/23/19 04:45 CMI [id number]) Pulse Oximetry Assessment Oxygen Saturation (92-100) 98 Oxygen Delivery Method Room Air Fraction of Inspired Oxygen (FIO2) 21 Equipment Usage Equipment in Use Continuous Pulse Oximeter 24 Hour Charge Charge Now Continuous SpO2 Machine # new 1 Intake & Output 09/22/19 09/23/19 09/24/19 06:59 06:59 06:59 Intake Total 3050 940 Output Total 50 Balance 3000 940 Weight 69.7 kg General appearance: PRESENT: no acute distress Musculoskeletal exam: PRESENT: other - Entire dressing and packing removed. No foul smell, erythema or drainage. Wound cavity irrigated, Xeroform placed in the recesses of the wound, covered by 4 x 4's. DPC sutures in place. Results Laboratory Results: 09/23/19 04:54 09/23/19 04:54 09/22/19 09/22/19 09/22/19 10:58 10:58 12:51 WBC 12.4 H RBC 4.29 L Hgb 12.7 L Hct 37.9 MCV 88 MCH 29.6 MCHC 33.4 RDW 12.8 Plt Count 438 Seg Neutrophils % 86.0 H Sodium 136.3 L Potassium 4.8 Chloride 93 L Carbon Dioxide 34 H Anion Gap 9 BUN 11 Creatinine 0.68 Est GFR ( Amer) > 60 Glucose 193 H Lactic Acid 1.1 Calcium 9.9 Total Bilirubin 0.4 AST 26 Alkaline Phosphatase 75 C-Reactive Protein 45.0 H Total Protein 7.6 Albumin 4.4 Urine Color Urine Appearance Urine pH Ur Specific [place] Urine Protein Urine Glucose (UA) Urine Ketones Urine Blood Ur Squamous Epith Cells 09/22/19 09/22/19 09/22/19 15:51 17:53 20:00 WBC RBC Hgb Hct MCV MCH MCHC RDW Plt Count Seg Neutrophils % Sodium Potassium Chloride Carbon Dioxide Anion Gap BUN Creatinine Est GFR ( Amer) Glucose Lactic Acid 2.4 H 0.9 Calcium Total Bilirubin AST Alkaline Phosphatase C-Reactive Protein Total Protein Albumin Urine Color STRAW Urine Appearance CLEAR Urine pH 7.0 Ur Specific [place] 1.014 Urine Protein NEGATIVE Urine Glucose (UA) >=500 H Urine Ketones TRACE H Urine Blood NEGATIVE Ur Squamous Epith Cells RARE 09/23/19 09/23/19 04:54 04:54 WBC 10.0 RBC 3.67 L Hgb 11.0 L Hct 32.2 L MCV 88 MCH 30.0 MCHC 34.1 RDW 12.8 Plt Count 374 Seg Neutrophils % 75.2 Sodium 138.5 Potassium 5.0 Chloride 99 Carbon Dioxide 32 H Anion Gap 8 BUN 12 Creatinine 0.69 Est GFR ( Amer) > 60 Glucose 202 H Lactic Acid Calcium 9.2 Total Bilirubin 0.3 AST 21 Alkaline Phosphatase 72 C-Reactive Protein Total Protein 6.2 L Albumin 3.5 Urine Color Urine Appearance Urine pH Ur Specific [place] Urine Protein Urine Glucose (UA) Urine Ketones Urine Blood Ur Squamous Epith Cells 09/23/19 04:54 NT-Pro-B Natriuret Pep 240 H Impressions: Foot X-Ray 09/22/19 10:39 IMPRESSION: Findings are consistent with osteomyelitis involving the distal phalanx of the great toe. Possible involvement of the interphalangeal joint of the great toe. Venous Doppler Study 09/22/19 11:54 IMPRESSION: NO EVIDENCE DVT OR SVT IN THE LEFT LEG. Assessment & Plan - Diagnosis (1) Osteomyelitis of toe of left foot Is this a current diagnosis for this admission?: Yes Plan: Impression: Patient is 1 day status post left great toe amputation, wound approximated with DPC sutures, foot clean, no indication for patient management Recommendations: 1. Wound repacked and dressed sterilely today. 2. Will have patient get up with surgical sandal 3. Anticipate DPC tomorrow at bedside. This was explained to patient. - Time Time Spent: 30 to 50 Minutes
--- NOTE | 2019-09-23 12:20 | PDOC PROGRESS REPORT ---
Subjective Progress Note for:: 09/23/19 Subjective:: 44 year old male with history of type 2 diabetes mellitus, hypertension, congestive heart failure came with complaints of left great toe swelling associated with purulent discharge. As per the patient patient has surgery on the left great toe by Dr. Rodriguez 2 weeks ago. And he was discharged on p.o. Bactrim. Started having the increased swelling of the left great toe associated with increasing pain and purulent drainage. He decided to came to the emergency room further evaluation. He is also complaining of fever body aches muscle aches. 09/[id number]-qrtm-old male with history of type 2 diabetes mellitus, hypertension, congestive heart failure admitted with left toe osteomyelitis. Status post left great toe amputation. Doing well. Surgery on board. Patient is receiving IV cefepime and IV vancomycin. Plan is to continue the antibiotics at this time. Reason For Visit: LT GREAT TOE OSTEOMYELITIS Physical Exam Vital Signs: Temp Pulse Resp BP Pulse Ox 99.4 F 88 18 124/81 96 09/23/19 07:53 09/23/19 07:53 09/23/19 07:53 09/23/19 07:53 09/23/19 07:53 Pulse Oximeter Continuous Start: 09/22/19 12:53 Freq: RTQ4 Status: Active Protocol: Document 09/23/19 04:00 [facility] (Rec: 09/23/19 04:45 [facility] [id number]) Pulse Oximetry Assessment Oxygen Saturation (92-100) 98 Oxygen Delivery Method Room Air Fraction of Inspired Oxygen (FIO2) 21 Equipment Usage Equipment in Use Continuous Pulse Oximeter 24 Hour Charge Charge Now Continuous SpO2 Machine # new 1 Intake & Output 09/22/19 09/23/19 09/24/19 06:59 06:59 06:59 Intake Total 3050 940 Output Total 50 Balance 3000 940 Weight 69.7 kg General appearance: PRESENT: no acute distress, well-developed Head exam: PRESENT: atraumatic Eye exam: PRESENT: PERRLA Mouth exam: PRESENT: dry mucosa Teeth exam: PRESENT: poor dentation Neck exam: ABSENT: carotid bruit, JVD, lymphadenopathy, thyromegaly Respiratory exam: PRESENT: decreased breath sounds Cardiovascular exam: PRESENT: RRR. ABSENT: diastolic murmur, rubs, systolic murmur Pulses: PRESENT: normal dorsalis pedis pul GI/Abdominal exam: PRESENT: normal bowel sounds, soft. ABSENT: distended, guarding, mass, organolmegaly, rebound, tenderness Rectal exam: PRESENT: deferred Extremities exam: PRESENT: other - Left foot wrapped in a dressing. Neurological exam: PRESENT: alert, awake, oriented to person, oriented to place, oriented to time, oriented to situation, CN II-XII grossly intact. ABSENT: motor sensory deficit Psychiatric exam: PRESENT: appropriate affect, normal mood. ABSENT: homicidal ideation, suicidal ideation Results Laboratory Results: 09/23/19 04:54 09/23/19 04:54 09/22/19 09/22/19 09/22/19 12:51 15:51 17:53 WBC RBC Hgb Hct MCV MCH MCHC RDW Plt Count Seg Neutrophils % Sodium Potassium Chloride Carbon Dioxide Anion Gap BUN Creatinine Est GFR ( Amer) Glucose Lactic Acid 1.1 2.4 H 0.9 Calcium Total Bilirubin AST Alkaline Phosphatase Total Protein Albumin Urine Color Urine Appearance Urine pH Ur Specific [place] Urine Protein Urine Glucose (UA) Urine Ketones Urine Blood Ur Squamous Epith Cells 09/22/19 09/23/19 09/23/19 20:00 04:54 04:54 WBC 10.0 RBC 3.67 L Hgb 11.0 L Hct 32.2 L MCV 88 MCH 30.0 MCHC 34.1 RDW 12.8 Plt Count 374 Seg Neutrophils % 75.2 Sodium 138.5 Potassium 5.0 Chloride 99 Carbon Dioxide 32 H Anion Gap 8 BUN 12 Creatinine 0.69 Est GFR ( Amer) > 60 Glucose 202 H Lactic Acid Calcium 9.2 Total Bilirubin 0.3 AST 21 Alkaline Phosphatase 72 Total Protein 6.2 L Albumin 3.5 Urine Color STRAW Urine Appearance CLEAR Urine pH 7.0 Ur Specific [place] 1.014 Urine Protein NEGATIVE Urine Glucose (UA) >=500 H Urine Ketones TRACE H Urine Blood NEGATIVE Ur Squamous Epith Cells RARE 09/23/19 04:54 NT-Pro-B Natriuret Pep 240 H Impressions: Foot X-Ray 09/22/19 10:39 IMPRESSION: Findings are consistent with osteomyelitis involving the distal phalanx of the great toe. Possible involvement of the interphalangeal joint of the great toe. Venous Doppler Study 09/22/19 11:54 IMPRESSION: NO EVIDENCE DVT OR SVT IN THE LEFT LEG. Assessment and Plan - Diagnosis (1) Osteomyelitis of toe of left foot Is this a current diagnosis for this admission?: Yes Plan: Impression: Patient is 1 day status post left great toe amputation, wound approximated with DPC sutures, foot clean, no indication for patient management Recommendations: 1. Wound repacked and dressed sterilely today. 2. Will have patient get up with surgical sandal 3. Anticipate DPC tomorrow at bedside. This was explained to patient. 09/23/2019-postop day 1 of left great toe amputation. Doing well. Plan is to co ntinue IV cefepime and vancomycin at this time. Cultures are pending. (2) CHF (congestive heart failure) Is this a current diagnosis for this admission?: No Plan: 09/22/2019-patient given the history of congestive heart failure. Plan is to do the echocardiogram today. 09/23/2019-patient has history of congestive heart failure echocardiogram is requested report is pending. (3) Hypertension Qualifiers: Hypertension type: essential hypertension Qualified Code(s): I10 - Essential (primary) hypertension Is this a current diagnosis for this admission?: No Plan: 09/22/2019-patient history of chronic essential hypertension he is going to be n.p.o. for surgery. Started on IV hydralazine 10 mg every 6 hours as needed for systolic blood pressure more than 160. 09/23/2019-patient has history of chronic essential hypertension. Had a successful surgery. Started on diabetic diet. Blood pressure today is 126/82. Stable. (4) Diabetes Is this a current diagnosis for this admission?: No Plan: 09/22/2019-patient has history of type 2 diabetes mellitus. He is n.p.o. To check the blood sugars 6 hours with insulin sliding scale coverage. To check for hemoglobin A1c. 09/23/2019 patient has history of type 2 diabetes mellitus hemoglobin A1c is 10.7. Diet exercise weight loss lifestyle modification discussed with the patient. To continue blood sugar monitoring before meals and at bedtime.
[2019-09-23 14:21] LABS: VANCOMYCIN,TROUGH 22.8 ug/mL (5.0-20.0)
[2019-09-23 21:46] LABS: VANCOMYCIN,TROUGH 12.8 ug/mL (5.0-20.0)
[2019-09-23] MEDS ORDERED: TRAZODONE HCL 50 MG TABLET PO SCH (22:00)
[2019-09-23] MEDS ORDERED: QUETIAPINE FUMARATE 100 MG TABLET PO SCH (22:00)
[2019-09-24] MEDS ORDERED: VANCOMYCIN HCL 1,250 MG in DEXTROSE 5%-WATER 250 ML IV SCH ×2 (02:00→22:00)
[2019-09-24 05:02] LABS: ABSOLUTE BASOPHILS # (AUTO) 0.1 10^3/uL (0.0-0.2); ABSOLUTE EOSINOPHILS # (AUTO) 0.2 10^3/uL (0.0-0.6); ABSOLUTE LYMPHOCYTES (AUTO) 2.5 10^3/uL (0.5-4.7); ABSOLUTE MONOCYTES (AUTO) 0.9 10^3/uL (0.1-1.4); ABSOLUTE NEUT (AUTO) 7.1 10^3/uL (1.7-8.2); BASOPHILS % (AUTO) 0.8 % (0-2); EOSINOPHILS % (AUTO) 1.8 % (0-6); HEMATOCRIT 31.6 % (37.9-51.0); HEMOGLOBIN 11.1 g/dL (13.5-17.0); LYMPHOCYTES % (AUTO) 23.4 % (13-45); MEAN CORPUSCULAR HEMOGLOBIN 30.7 pg (27.0-33.4); MEAN CORPUSCULAR HGB CONC 35.3 g/dL (32.0-36.0); MEAN CORPUSCULAR VOLUME 87 fl (80-97); MONOCYTES % (AUTO) 8.2 % (3-13); PLATELET COUNT 390 10^3/uL (150-450); RED BLOOD COUNT 3.63 10^6/uL (4.35-5.55); RED CELL DISTRIBUTION WIDTH 12.6 % (11.5-14.0); SEGMENTED NEUTROPHILS % (AUTO) 65.8 % (42-78); TOTAL CELLS COUNTED % (AUTO) 100 %; WHITE BLOOD COUNT 10.7 10^3/uL (4.0-10.5)
[2019-09-24] MEDS: PANTOPRAZOLE SODIUM 40 MG TABLET.DR PO SCH (05:04)
[2019-09-24] MEDS: VANCOMYCIN HCL 1,000 MG in DEXTROSE 5%-WATER 250 ML IV SCH ×2 (05:04→14:05)
[2019-09-24 05:16] LABS: ALBUMIN 3.4 g/dL (3.5-5.0); ALKALINE PHOSPHATASE 68 U/L (38-126); ANION GAP 9 (5-19); ASPARTATE AMINO TRANSFERASE 17 U/L (17-59); BILIRUBIN,DIRECT 0.3 mg/dL (0.0-0.4); BILIRUBIN,TOTAL 0.3 mg/dL (0.2-1.3); BLOOD UREA NITROGEN 13 mg/dL (7-20); CALCIUM 8.9 mg/dL (8.4-10.2); CARBON DIOXIDE 30 mmol/L (22-30); CHLORIDE 99 mmol/L (98-107); GLUCOSE 274 mg/dL (75-110); POTASSIUM 4.3 mmol/L (3.6-5.0); TOTAL PROTEIN 6.4 g/dL (6.3-8.2)
[2019-09-24] MEDS: INSULIN REG, HUMAN 100 UNIT/ML 3 ML VIAL (PYX) SUBCUT SCH ×3 (07:59→16:05)
--- NOTE | 2019-09-24 09:18 | PDOC PROGRESS REPORT ---
Subjective Progress Note for:: 09/24/19 Subjective:: feels ok Reason For Visit: LT GREAT TOE AMPUTATION, OSTEOMYELITIS Physical Exam Vital Signs: Temp Pulse Resp BP Pulse Ox 99.1 F 77 17 135/85 H 98 09/23/19 20:28 09/23/19 20:28 09/23/19 20:28 09/23/19 20:28 09/23/19 20:28 Pulse Oximeter Continuous Start: 09/22/19 12:53 Freq: RTQ4 Status: Complete Protocol: Document 09/23/19 14:02 [facility] (Rec: 09/23/19 14:05 [facility] [id number]) Pulse Oximetry Assessment Oxygen Saturation (92-100) 96 Oxygen Delivery Method Room Air Fraction of Inspired Oxygen (FIO2) 21 Equipment Usage Equipment Discontinued Continuous SpO2 Machine # 1 Intake & Output 09/23/19 09/24/19 09/25/19 06:59 06:59 06:59 Intake Total 3050 2821 Output Total 50 300 Balance 3000 2521 Weight 69.7 kg 67.1 kg General appearance: PRESENT: no acute distress Head exam: PRESENT: normocephalic Eye exam: PRESENT: EOMI Ear exam: PRESENT: normal external ear exam Mouth exam: PRESENT: moist Neck exam: PRESENT: full ROM Respiratory exam: PRESENT: clear to auscultation neil Cardiovascular exam: PRESENT: RRR Pulses: PRESENT: normal femoral pulses, normal dorsalis pedis pul Vascular exam: PRESENT: normal capillary refill Breast: PRESENT: Normal GI/Abdominal exam: PRESENT: soft Rectal exam: PRESENT: deferred Extremities exam: PRESENT: full ROM, other - left great toe amp site clean min drainage removed packing will cont wet to dry for now will plan on dpc when some granulation tissue evident. Results Laboratory Results: 09/24/19 04:37 09/24/19 04:37 09/24/19 09/24/19 04:37 04:37 WBC 10.7 H RBC 3.63 L Hgb 11.1 L Hct 31.6 L MCV 87 MCH 30.7 MCHC 35.3 RDW 12.6 Plt Count 390 Seg Neutrophils % 65.8 Sodium 138.3 Potassium 4.3 Chloride 99 Carbon Dioxide 30 Anion Gap 9 BUN 13 Creatinine 0.66 Est GFR ( Amer) > 60 Glucose 274 H Calcium 8.9 Magnesium 1.7 Total Bilirubin 0.3 AST 17 Alkaline Phosphatase 68 Total Protein 6.4 Albumin 3.4 L 09/22/19 10:58 Blood Blood Culture (PCR) - Final 09/23/19 04:54 NT-Pro-B Natriuret Pep 240 H Impressions: Foot X-Ray 09/22/19 10:39 IMPRESSION: Findings are consistent with osteomyelitis involving the distal phalanx of the great toe. Possible involvement of the interphalangeal joint of the great toe. Venous Doppler Study 09/22/19 11:54 IMPRESSION: NO EVIDENCE DVT OR SVT IN THE LEFT LEG.
[2019-09-24] MEDS: GABAPENTIN 300 MG CAPSULE PO SCH (09:20)
[2019-09-24] MEDS: PAROXETINE HCL 20 MG TABLET PO SCH (09:21)
[2019-09-24] MEDS: CEFEPIME HCL 2 GM in DEXTROSE 5%-WATER 50 ML IV SCH (09:22)
[2019-09-24] MEDS ORDERED: INSULIN GLARGINE,HUM.REC.ANLOG 1,000 UNIT/10 ML VIAL SUBCUT SCH (10:00)
[2019-09-24] MEDS ORDERED: ONDANSETRON HCL INJ/PF 4 MG/2 ML SDV IV PRN (10:19)
--- NOTE | 2019-09-24 10:27 | PDOC PROGRESS REPORT ---
Subjective Progress Note for:: 09/24/19 Subjective:: 44 year old male with history of type 2 diabetes mellitus, hypertension, congestive heart failure came with complaints of left great toe swelling associated with purulent discharge. As per the patient patient has surgery on the left great toe by Dr. Rodriguez 2 weeks ago. And he was discharged on p.o. Bactrim. Started having the increased swelling of the left great toe associated with increasing pain and purulent drainage. He decided to came to the emergency room further evaluation. He is also complaining of fever body aches muscle aches. 09/23/[id number]-lhoh-old male with history of type 2 diabetes mellitus, hypertension, congestive heart failure admitted with left toe osteomyelitis. Status post left great toe amputation. Doing well. Surgery on board. Patient is receiving IV cefepime and IV vancomycin. Plan is to continue the antibiotics at this time. 09/24/1975-35-usbl-old male with history of type 2 diabetes mellitus, hypertension, congestive heart failure admitted with left toe osteomyelitis status post surgery and left great toe amputation. Blood cultures are positive for gram- positive cocci. Presently on IV cefepime and IV vancomycin. Complaining of vomiting's this morning to start on IV Zofran 4 mg IV every 4 as needed. Reason For Visit: LT GREAT TOE AMPUTATION, OSTEOMYELITIS Physical Exam Vital Signs: Temp Pulse Resp BP Pulse Ox 99.1 F 77 17 135/85 H 98 09/23/19 20:28 09/23/19 20:28 09/23/19 20:28 09/23/19 20:28 09/23/19 20:28 Pulse Oximeter Continuous Start: 09/22/19 12:53 Freq: RTQ4 Status: Complete Protocol: Document 09/23/19 14:02 [facility] (Rec: 09/23/19 14:05 [facility] [id number]) Pulse Oximetry Assessment Oxygen Saturation (92-100) 96 Oxygen Delivery Method Room Air Fraction of Inspired Oxygen (FIO2) 21 Equipment Usage Equipment Discontinued Continuous SpO2 Machine # 1 Intake & Output 09/23/19 09/24/19 09/25/19 06:59 06:59 06:59 Intake Total 3050 2821 Output Total 50 300 Balance 3000 2521 Weight 69.7 kg 67.1 kg General appearance: PRESENT: no acute distress, thin Head exam: PRESENT: atraumatic Eye exam: PRESENT: PERRLA Mouth exam: PRESENT: moist, tongue midline Teeth exam: PRESENT: poor dentation Neck exam: ABSENT: carotid bruit, JVD, lymphadenopathy, thyromegaly Respiratory exam: PRESENT: decreased breath sounds Cardiovascular exam: PRESENT: RRR. ABSENT: diastolic murmur, rubs, systolic murmur Pulses: PRESENT: normal dorsalis pedis pul GI/Abdominal exam: PRESENT: normal bowel sounds, soft. ABSENT: distended, gua rding, mass, organolmegaly, rebound, tenderness Rectal exam: PRESENT: deferred Extremities exam: PRESENT: full ROM. ABSENT: calf tenderness, clubbing, pedal edema Neurological exam: PRESENT: alert, awake, oriented to person, oriented to place, oriented to time, oriented to situation, CN II-XII grossly intact. ABSENT: wilmar r sensory deficit Psychiatric exam: PRESENT: appropriate affect, normal mood. ABSENT: homicidal ideation, suicidal ideation Results Laboratory Results: 09/24/19 04:37 09/24/19 04:37 09/24/19 09/24/19 04:37 04:37 WBC 10.7 H RBC 3.63 L Hgb 11.1 L Hct 31.6 L MCV 87 MCH 30.7 MCHC 35.3 RDW 12.6 Plt Count 390 Seg Neutrophils % 65.8 Sodium 138.3 Potassium 4.3 Chloride 99 Carbon Dioxide 30 Anion Gap 9 BUN 13 Creatinine 0.66 Est GFR ( Amer) > 60 Glucose 274 H Calcium 8.9 Magnesium 1.7 Total Bilirubin 0.3 AST 17 Alkaline Phosphatase 68 Total Protein 6.4 Albumin 3.4 L 09/22/19 10:58 Blood Blood Culture (PCR) - Final 09/23/19 04:54 NT-Pro-B Natriuret Pep 240 H Impressions: Foot X-Ray 09/22/19 10:39 IMPRESSION: Findings are consistent with osteomyelitis involving the distal phalanx of the great toe. Possible involvement of the interphalangeal joint of the great toe. Venous Doppler Study 09/22/19 11:54 IMPRESSION: NO EVIDENCE DVT OR SVT IN THE LEFT LEG. Assessment and Plan - Diagnosis (1) Osteomyelitis of toe of left foot Is this a current diagnosis for this admission?: Yes Plan: Impression: Patient is 1 day status post left great toe amputation, wound approximated with DPC sutures, foot clean, no indication for patient management Recommendations: 1. Wound repacked and dressed sterilely today. 2. Will have patient get up with surgical sandal 3. Anticipate DPC tomorrow at bedside. This was explained to patient. 09/23/2019-postop day 1 of left great toe amputation. Doing well. Plan is to continue IV cefepime and vancomycin at this time. Cultures are pending. 09/24/2019 postop day 2 underwent left great toe amputation. Blood cultures are positive for gram-positive cocci in clusters. On IV cefepime and vancomycin. Plan is to continue the antibiotic therapy at this time. (2) CHF (congestive heart failure) Is this a current diagnosis for this admission?: No Plan: 09/22/2019-patient given the history of congestive heart failure. Plan is to do the echocardiogram today. 09/23/2019-patient has history of congestive heart failure echocardiogram is requested report is pending. 09/24/19 patient is given the history of congestive heart failure echo is requested at this time unable to deter mine with that the patient has a acute on chronic systolic or diastolic hypertension. (3) Hypertension Qualifiers: Hypertension type: essential hypertension Qualified Code(s): I10 - Essential (primary) hypertension Is this a current diagnosis for this admission?: No Plan: 09/22/2019-patient history of chronic essential hypertension he is going to be n.p.o. for surgery. Started on IV hydralazine 10 mg every 6 hours as needed for systolic blood pressure more than 160. 09/23/2019-patient has history of chronic essential hypertension. Had a successful surgery. Started on diabetic diet. Blood pressure today is 126/82. Stable. 09/24/2019-patient has essential hypertension blood pressure today is 135/80. Plan is to continue the present management. (4) Diabetes Is this a current diagnosis for this admission?: No Plan: 09/22/2019-patient has history of type 2 diabetes mellitus. He is n.p.o. To check the blood sugars 6 hours with insulin sliding scale coverage. To check for hemoglobin A1c. 09/23/2019 patient has history of type 2 diabetes mellitus hemoglobin A1c is 10.7. Diet exercise weight loss lifestyle modification discussed with the patient. To continue blood sugar monitoring before meals and at bedtime. 09/24/2019-blood sugar this morning is 286 on insulin sliding scale and Lantus 10 units at night. To increase the dose dose to 10 units twice a day. Hemoglobin A1c is 10.7
[2019-09-24 13:56] VITALS: BP 140/93
--- NOTE | 2019-10-04 12:22 | Left Against Medical Advice ---
Against Medical Advice Admission Date/Time: 09/22/19 12:48 Primary Care Provider: SARITHA HARDY MD Date of Patient Emigration: 09/24/19 - Diagnosis: (1) Osteomyelitis of toe of left foot Is this a current diagnosis for this admission?: Yes (2) CHF (congestive heart failure) Is this a current diagnosis for this admission?: No (3) Hypertension Is this a current diagnosis for this admission?: No (4) Diabetes Is this a current diagnosis for this admission?: No - Summary: Summary: Please see Admission and Progress Notes as well. FILEMON VERGARA is a 44 M, who LEFT AGAINST MEDICAL ADVICE. The Patient was admitted on 09/22/19 12:48. 44 years old male with h/o dm/htn/chf admitted for lt great toe osteomyelitis s/p amputation on iv antibiotics.. pt left AMA at 7 23 pm because of family emergencyu. nurse national sales executive , hospitalist on night [place] tried their best to conv kulwinder the pt to stay .. but pt signed AMA and left the hosp.
== END 2019-09-24 15:58 | disposition left against medical advice (07) | DRG 617 ==
LOC: ER 10:05 → UNDOADMIN 12:48 → EH 12:48 → 4S 16:47 → EH 16:47
PROVIDERS: ADMIT Internal Medicine; ATTEND Internal Medicine
PROC: 0Y6Q0Z0 Detachment at Left 1st Toe, Complete, Open Approach (ICD-10-PCS; principal; 2019-09-22 14:00)
DX: E11.69 Type 2 diabetes mellitus with other specified complication (principal); M86.9 Osteomyelitis, unspecified; I11.0 Hypertensive heart disease with heart failure; I50.9 Heart failure, unspecified; E78.5 Hyperlipidemia, unspecified; F31.9 Bipolar disorder, unspecified; F12.10 Cannabis abuse, uncomplicated; F41.1 Generalized anxiety disorder; Z53.29 Procedure and treatment not carried out because of patient's decision for other reasons; Z79.4 Long term (current) use of insulin; Z79.899 Other long term (current) drug therapy
CPT/HCPCS: 01480; 36415; 80053; 80202; 81001; 82962; 83036; 83605; 83735; 83880; 85025; 85610; 85652; 86140; 87040; 87077; 87150; 87186; 93971; 94762; 94799; 99285; J0692; J1100; J1815; J2250; J2270; J2405; J2704; J3010; J3370; J3490; J7030; J7060

== ENCOUNTER 2020-05-01 14:12 | Observation (INO) | payer MEDICAID ==
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
--- NOTE | 2020-05-01 14:39 | RADIOLOGY REPORT (SQ) ---
EXAM DESCRIPTION: CT HEAD WITHOUT IMAGES COMPLETED DATE/TIME: 05/01/2020 2:28 pm REASON FOR STUDY: Possible stroke COMPARISON: 01/12/2019, 01/11/2019, 11/27/2018 TECHNIQUE: Axial images acquired through the brain without intravenous contrast. Images reviewed wi th bone, brain and subdural windows. Additional sagittal and coronal reconstructions were generated. Images stored on PACS. All CT scanners at this facility use dose modulation, iterative reconstruction, and/or weight based d osing when appropriate to reduce radiation dose to as low as reasonably achievable (ALARA). [facility]: Dose Right [facility]: CareDose [facility]: Dose Right [facility]: Teradose 4D [facility]: CelePost RADIATION DOSE: CT Rad equipment meets quality standard of care and radiation dose reduction techniq ues were employed. CTDIvol: 53.2 mGy. DLP: 1044 mGy-cm. mGy. LIMITATIONS: None. FINDINGS: VENTRICLES: Normal size and contour. CEREBRUM: No masses. No hemorrhage. No midline shift. No evidence for acute infarction. Normal gra y/white matter differentiation. No areas of low density in the white matter. CEREBELLUM: No masses. No hemorrhage. No alteration of density. No evidence for acute infarction. EXTRAAXIAL SPACES: No fluid collections. No masses. ORBITS AND GLOBE: No intra- or extraconal masses. Normal contour of globe without masses. CALVARIUM: No fracture. PARANASAL SINUSES: No fluid or mucosal thickening. SOFT TISSUES: No mass or hematoma. OTHER: No other significant finding. IMPRESSION: NORMAL BRAIN CT WITHOUT CONTRAST. EVIDENCE OF ACUTE STROKE: NO. COMMENT: Quality ID # [id number]: Final reports with documentation of one or more dose reduction techniques (e.g., Automated exposure control, adjustment of the mA and/or kV according to patient size, use of iterative reconstruction technique) TECHNICAL DOCUMENTATION: JOB ID: [id number] 2010 [employer]- All Rights Reserved Reading location - IP/workstation name: [email or web address]
[2020-05-01 15:01] LABS: ABSOLUTE EOSINOPHILS # (AUTO) 0.3 10^3/uL (0.0-0.6); ABSOLUTE LYMPHOCYTES (AUTO) 2.1 10^3/uL (0.5-4.7); ABSOLUTE MONOCYTES (AUTO) 0.3 10^3/uL (0.1-1.4); ABSOLUTE NEUT (AUTO) 5.5 10^3/uL (1.7-8.2); BASOPHILS % (AUTO) 0.5 % (0-2); EOSINOPHILS % (AUTO) 3.8 % (0-6); HEMATOCRIT 37.2 % (37.9-51.0); HEMOGLOBIN 12.5 g/dL (13.5-17.0); LYMPHOCYTES % (AUTO) 24.9 % (13-45); MEAN CORPUSCULAR HEMOGLOBIN 30.8 pg (27.0-33.4); MEAN CORPUSCULAR HGB CONC 33.7 g/dL (32.0-36.0); MEAN CORPUSCULAR VOLUME 91 fl (80-97); PLATELET COUNT 310 10^3/uL (150-450); RED BLOOD COUNT 4.07 10^6/uL (4.35-5.55); RED CELL DISTRIBUTION WIDTH 13.2 % (11.5-14.0); SEGMENTED NEUTROPHILS % (AUTO) 66.8 % (42-78); TOTAL CELLS COUNTED % (AUTO) 100 %; WHITE BLOOD COUNT 8.2 10^3/uL (4.0-10.5)
[2020-05-01 15:03] LABS: INTERNATIONAL RATION (INR) 0.96
[2020-05-01 15:18] LABS: ALBUMIN 4.4 g/dL (3.5-5.0); ALKALINE PHOSPHATASE 53 U/L (38-126); ANION GAP 15 (5-19); ASPARTATE AMINO TRANSFERASE 18 U/L (17-59); BILIRUBIN,DIRECT 0.3 mg/dL (0.0-0.4); BILIRUBIN,TOTAL 0.5 mg/dL (0.2-1.3); BLOOD UREA NITROGEN 15 mg/dL (7-20); CALCIUM 9.7 mg/dL (8.4-10.2); CARBON DIOXIDE 24 mmol/L (22-30); CHLORIDE 92 mmol/L (98-107); CREATINE KINASE 97 U/L (55-170); POTASSIUM 4.8 mmol/L (3.6-5.0); TOTAL PROTEIN 6.9 g/dL (6.3-8.2)
[2020-05-01 15:26] LABS: GLUCOSE 622 mg/dL (75-110)
[2020-05-01 15:30] LABS: CREATINE KINASE MB 1.92 ng/mL (<4.55); TROPONIN I < 0.012 ng/mL
[2020-05-01] MEDS ORDERED: MORPHINE SULFATE 10 MG/ML INJ IV ONE (15:31)
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
[2020-05-01] MEDS ORDERED: INSULIN REG, HUMAN 100 UNIT/ML 3 ML VIAL (PYX) IV ONE (15:38)
--- NOTE | 2020-05-01 15:40 | RADIOLOGY REPORT (SQ) ---
EXAM DESCRIPTION: CHEST SINGLE VIEW IMAGES COMPLETED DATE/TIME: 05/01/2020 3:31 pm REASON FOR STUDY: Possible stroke COMPARISON: None. EXAM PARAMETERS: NUMBER OF VIEWS: One view. TECHNIQUE: Single frontal radiographic view of the chest acquired. RADIATION DOSE: NA LIMITATIONS: None. FINDINGS: LUNGS AND PLEURA: No opacities, masses or pneumothorax. No pleural effusion. MEDIASTINUM AND HILAR STRUCTURES: No masses. Contour normal. HEART AND VASCULAR STRUCTURES: Heart normal in size. Normal vasculature. BONES: No acute findings. HARDWARE: None in the chest. OTHER: No other significant finding. IMPRESSION: NO ACUTE RADIOGRAPHIC FINDING IN THE CHEST. TECHNICAL DOCUMENTATION: JOB ID: [id number] 2010 [employer]- All Rights Reserved Reading location - IP/workstation name: [email or web address]
[2020-05-01] MEDS ORDERED: LORAZEPAM INJ 2 MG/1 ML VIAL IV ONE (15:52)
[2020-05-01] MEDS ORDERED: ASPIRIN 325 MG TABLET PO ONE (16:23)
--- NOTE | 2020-05-01 17:11 | RADIOLOGY REPORT (SQ) ---
EXAM DESCRIPTION: MRI HEAD WITHOUT IMAGES COMPLETED DATE/TIME: 05/01/2020 4:57 pm REASON FOR STUDY: dysasrthria, LUE weakness, eval for CVA COMPARISON: None. TECHNIQUE: Multiplanar imaging includes non-contrasted T1, T2, FLAIR, and diffusion with ADC map seq uences. Images stored on PACS. LIMITATIONS: None. FINDINGS: ANATOMY: No anomalies. Normal vascular flow voids. Pituitary fossa normal. CSF SPACES: Normal in size and contour. No hemorrhage. CEREBRUM: Sulci and gyri normal in size and contour. Few scattered areas of periventricular subcorti carrillo FLAIR signal hyperintensity, nonspecific but likely sequelae of microangiopathic disease. No faisal dence of hemorrhage, mass, or extraaxial fluid collection. POSTERIOR FOSSA: No signal alteration. No hemorrhage. No edema, masses or mass effect. Internal hillary tory canals, cerebello-pontine angles, mastoids normal. DIFFUSION IMAGING: Negative for acute or sub-acute infarction. ORBITS: No masses. Globes normal. PARANASAL SINUSES: No fluid levels. Mucosa normal. OTHER: No other significant finding. IMPRESSION: No evidence of acute infarct or other acute intracranial process. EVIDENCE OF ACUTE STROKE: NO. TECHNICAL DOCUMENTATION: JOB ID: [id number] 2010 [employer]- All Rights Reserved Reading location - IP/workstation name: [email or web address]
[2020-05-01] MEDS ORDERED: 1/2 NORMAL SALINE 1,000 ML IV PRN (17:29)
[2020-05-01] MEDS ORDERED: ONDANSETRON HCL INJ/PF 4 MG/2 ML SDV IV PRN (17:29)
[2020-05-01] MEDS ORDERED: GLUCAGON,HUMAN RECOMB 1 MG INJ IM PRN (17:35)
[2020-05-01] MEDS ORDERED: DEXTROSE 40% GEL 15 GM TUBE PO PRN ×2 (17:35)
[2020-05-01] MEDS ORDERED: DEXTROSE 50%-WATER 25 GM/50 ML DISP.SYRIN IV PRN ×2 (17:35)
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
--- NOTE | 2020-05-01 18:55 | EKG REPORT ---
SEVERITY:- NORMAL ECG - SINUS RHYTHM : Confirmed by: Jack Carrillo MD 01-May-2020 18:54:30
[2020-05-01] MEDS: INSULIN LISPRO 100 UNIT/ML 3 ML VIAL SUBCUT SCH (19:36)
[2020-05-01] MEDS ORDERED: ATORVASTATIN CALCIUM 40 MG TABLET PO SCH (22:00)
[2020-05-01] MEDS ORDERED: INSULIN GLARGINE,HUM.REC.ANLOG 1,000 UNIT/10 ML VIAL SUBCUT SCH (22:00)
[2020-05-01] MEDS: MORPHINE SULFATE 10 MG/ML INJ IV PRN (23:07)
[2020-05-01] MEDS: HEPARIN SOD (PORCINE) 5,000 UNIT/ML 1 ML VIAL SUBCUT SCH (23:07)
[2020-05-02] MEDS ORDERED: INSULIN GLARGINE,HUM.REC.ANLOG 1,000 UNIT/10 ML VIAL (PYX) SUBCUT ONE (00:03)
[2020-05-02] MEDS: INSULIN LISPRO 100 UNIT/ML 3 ML VIAL SUBCUT SCH ×3 (00:10→11:51)
[2020-05-02] MEDS ORDERED: QUETIAPINE FUMARATE 100 MG TABLET PO ONE (01:00)
[2020-05-02] MEDS ORDERED: PAROXETINE HCL 20 MG TABLET PO ONE (01:00)
[2020-05-02] MEDS: MORPHINE SULFATE 10 MG/ML INJ IV PRN ×2 (03:25→08:40)
[2020-05-02 06:10] LABS: HEMATOCRIT 35.6 % (37.9-51.0); HEMOGLOBIN 12.6 g/dL (13.5-17.0); MEAN CORPUSCULAR HEMOGLOBIN 30.9 pg (27.0-33.4); MEAN CORPUSCULAR HGB CONC 35.3 g/dL (32.0-36.0); PLATELET COUNT 291 10^3/uL (150-450); RED BLOOD COUNT 4.07 10^6/uL (4.35-5.55); RED CELL DISTRIBUTION WIDTH 12.7 % (11.5-14.0); WHITE BLOOD COUNT 9.6 10^3/uL (4.0-10.5)
[2020-05-02 06:13] LABS: MEAN CORPUSCULAR VOLUME 87 fl (80-97)
[2020-05-02 06:19] LABS: ANION GAP 10 (5-19); BLOOD UREA NITROGEN 14 mg/dL (7-20); CALCIUM 9.9 mg/dL (8.4-10.2); CARBON DIOXIDE 29 mmol/L (22-30); CHLORIDE 97 mmol/L (98-107); CHOLESTEROL 258.11 mg/dL (0-200); GLUCOSE 137 mg/dL (75-110); POTASSIUM 4.4 mmol/L (3.6-5.0); TRIGLYCERIDES 471 mg/dL (<150)
[2020-05-02 06:30] LABS: DIRECT LDL 124 mg/dL (<100)
[2020-05-02] MEDS: HEPARIN SOD (PORCINE) 5,000 UNIT/ML 1 ML VIAL SUBCUT SCH ×2 (06:43→13:59)
[2020-05-02] MEDS ORDERED: ASPIRIN 81 MG TABLET, CHEWABLE PO SCH (10:00)
[2020-05-02] MEDS ORDERED: GABAPENTIN 300 MG CAPSULE PO SCH (14:00)
[2020-05-02 14:29] VITALS: BP 144/85
[2020-05-02] MEDS ORDERED: (PENDING PHARMACY ID) (Quetiapine Fumarate [Seroquel Xr] 200 MG) PO SCH (18:00)
[2020-05-02] MEDS ORDERED: ATORVASTATIN CALCIUM 40 MG TABLET PO SCH (22:00)
[2020-05-02] MEDS ORDERED: ATORVASTATIN CALCIUM 80 MG TABLET PO SCH (22:00)
[2020-05-02] MEDS ORDERED: PAROXETINE HCL 20 MG TABLET PO SCH (22:00)
[2020-05-02] MEDS ORDERED: QUETIAPINE FUMARATE 100 MG TABLET PO SCH (22:00)
--- NOTE | 2020-05-03 07:35 | PDOC DISCHARGE SUMMARY ---
Impression - Admit/DC Date/PCP Admission Date/Primary Care Provider: 05/01/20 16:34 SARITHA HARDY MD Discharge Date: 05/02/20 - Discharge Diagnosis (1) Bipolar disorder Is this a current diagnosis for this admission?: Yes (2) TIA (transient ischemic attack) Is this a current diagnosis for this admission?: Yes (3) Uncontrolled type 2 diabetes mellitus Is this a current diagnosis for this admission?: Yes - Additional Information Discharge Diet: Cardiac, Diabetic Discharge Activity: Activity As Tolerated, Balance Activity w/Rest Referrals: SARITHA HARDY MD [Primary Care Provider] - 05/09/20 10:45 am Prescriptions: Blood-Glucose Meter [Blood Glucose Meter] 1 unit MC DAILY PRN #1 unit PRN Reason: Insulin Lispro [Humalog Kwikpen U-100] 0 - 14 unit SQ ACHS #1 insuln.pen Insulin Glargine,Hum.rec.anlog [Lantus Insulin 100 Unit/mL Insulin Pen] 16 unit SUBCUT QHS #1 pen Atorvastatin Calcium [Lipitor 80 mg Tablet] 80 mg PO QHS #30 tablet Home Medications: Trazodone HCl 150 mg PO QHS 08/29/19 Gabapentin [Neurontin] 600 mg PO Q8 05/01/20 Paroxetine HCl [Paxil 20 mg Tablet] 60 mg PO DAILY 05/01/20 Quetiapine Fumarate [Seroquel Xr] 200 mg PO QPM 05/01/20 Aspirin [Aspirin 81 mg Chewable Tablet] 81 mg PO DAILY tab.chew 05/02/20 Atorvastatin Calcium [Lipitor 80 mg Tablet] 80 mg PO QHS #30 tablet 05/02/20 Blood-Glucose Meter [Blood Glucose Meter] 1 unit MC DAILY PRN #1 unit 05/02/20 Insulin Glargine,Hum.rec.anlog [Lantus Insulin 100 Unit/mL Insulin Pen] 16 unit SUBCUT QHS #1 pen 05/02/20 Insulin Lispro [Humalog Kwikpen U-100] 0 - 14 unit SQ ACHS #1 insuln.pen 05/02/20 History of Present Illiness History of Present Illness: Per H&P by Dr. Chan: FILEMON VERGARA is a 44 year old male with a history of uncontrolled diabetes mellitus and peripheral vascular disease who presents with a 1 day history of weakness which she says takes up the whole left side of his body. In the ER he seems to have full use of his extremities without any motor deficits. He says he is having trouble getting words out but he conversed with me just fine in the ER. He is an insulin-dependent diabetic but is noncompliant with his diet and his insulin. He said he stopped taking his insulin because he did not like the way he felt whenever his blood sugar drop below 300. He said he has been to see his doctor and he does not understand the rationale behind a sliding scale. Blood sugar in here was 622. Hospital Course Hospital Course: The patient was admitted for TIA symptoms. His symptoms rapidly resolved other than subjective report of difficulty word finding. Per H&P, this was not noted by the admitting provider. At the time of my assessment on day of discharge, the patient was noted to have a normal inflection, affect, and rate of speech. Patient stated that he continued to have intermittent difficulty with word finding but otherwise felt that he was back to his baseline status and requested to be discharged home. Evaluation revealed mild anemia but otherwise unremarkable CBC, normal PT/INR, and unremarkable chemistry. Lipid panel is assessed; patient was found to have hypertriglyceridemia, elevated LDL, low HDL. Head CT and MRI were negative for acute findings. Patient was monitored on telemetry; no abnormal rhythms noted. I did discuss with the patient recommendations for carotid Doppler, however, he did not wish to stay to have further imaging done. Has this can be arranged as an outpatient by his PCP, it was not [facility]. Patient did meet with physical therapy and Occupational Therapy; no deficits noted; patient ambulates independently is capable of completing all of his ADLs. Patient admits to difficulty maintaining blood sugar and confusion about insulin therapy. He met with the staff development educator prior to discharge. He is discharged home, in stable condition. He has been provided prescriptions for daily aspirin, and a glucometer, high- dose atorvastatin, Humalog and Lantus pens. He is advised to follow-up with his primary care provider within 1 week and to return to the emergency department, as needed, for concerning symptoms. Physical Exam Vital Signs: Temp Pulse Resp BP Pulse Ox 97.9 F 84 18 144/85 H 97 05/02/20 15:48 05/02/20 15:48 05/02/20 15:48 05/02/20 12:00 05/02/20 15:48 Intake & Output 05/02/20 05/03/20 05/04/20 06:59 06:59 06:59 Intake Total 1000 Balance 1000 Weight 63.8 kg 63.8 kg General appearance: PRESENT: no acute distress, disheveled, well-developed, well-nourished Head exam: PRESENT: atraumatic, normocephalic Eye exam: PRESENT: conjunctiva pink, EOMI, PERRLA. ABSENT: scleral icterus Mouth exam: PRESENT: moist, tongue midline Teeth exam: PRESENT: poor dentation Neck exam: ABSENT: carotid bruit, JVD, lymphadenopathy, thyromegaly Respiratory exam: PRESENT: clear to auscultation neil, symmetrical, unlabored. ABSENT: rales, rhonchi, wheezes Cardiovascular exam: PRESENT: RRR. ABSENT: diastolic murmur, rubs, systolic murmur Pulses: PRESENT: normal dorsalis pedis pul Vascular exam: PRESENT: normal capillary refill Extremities exam: PRESENT: full ROM. ABSENT: calf tenderness, clubbing, pedal edema Musculoskeletal exam: PRESENT: ambulatory Neurological exam: PRESENT: alert, awake, oriented to person, oriented to place, oriented to time, oriented to situation, CN II-XII grossly intact. ABSENT: motor sensory deficit Psychiatric exam: PRESENT: appropriate affect, normal mood. ABSENT: homicidal ideation, suicidal ideation Skin exam: PRESENT: dry, intact, warm. ABSENT: cyanosis, rash Results Laboratory Results: WBC 9.6 10^3/uL (4.0-10.5) 05/02/20 05:28 RBC 4.07 10^6/uL (4.35-5.55) L 05/02/20 05:28 Hgb 12.6 g/dL (13.5-17.0) L 05/02/20 05:28 Hct 35.6 % (37.9-51.0) L 05/02/20 05:28 MCV 87 fl (80-97) D 05/02/20 05:28 MCH 30.9 pg (27.0-33.4) 05/02/20 05:28 MCHC 35.3 g/dL (32.0-36.0) 05/02/20 05:28 RDW 12.7 % (11.5-14.0) 05/02/20 05:28 Plt Count 291 10^3/uL (150-450) 05/02/20 05:28 Lymph % (Auto) 24.9 % (13-45) 05/01/20 14:49 Starr % (Auto) 4.0 % (3-13) 05/01/20 14:49 Eos % (Auto) 3.8 % (0-6) 05/01/20 14:49 Baso % (Auto) 0.5 % (0-2) 05/01/20 14:49 Absolute Neuts (auto) 5.5 10^3/uL (1.7-8.2) 05/01/20 14:49 Absolute Lymphs (auto) 2.1 10^3/uL (0.5-4.7) 05/01/20 14:49 Absolute Monos (auto) 0.3 10^3/uL (0.1-1.4) 05/01/20 14:49 Absolute Eos (auto) 0.3 10^3/uL (0.0-0.6) 05/01/20 14:49 Absolute Basos (auto) 0.0 10^3/uL (0.0-0.2) 05/01/20 14:49 Seg Neutrophils % 66.8 % (42-78) 05/01/20 14:49 PT 13.0 SEC (11.4-15.4) 05/01/20 14:49 INR 0.96 05/01/20 14:49 APTT 28.0 SEC (23.5-35.8) 05/01/20 14:49 Sodium 136.2 mmol/L (137-145) L 05/02/20 05:28 Potassium 4.4 mmol/L (3.6-5.0) 05/02/20 05:28 Chloride 97 mmol/L (98-107) L 05/02/20 05:28 Carbon Dioxide 29 mmol/L (22-30) 05/02/20 05:28 Anion Gap 10 (5-19) 05/02/20 05:28 BUN 14 mg/dL (7-20) 05/02/20 05:28 Creatinine 0.66 mg/dL (0.52-1.25) 05/02/20 05:28 Est GFR ( Amer) > 60 (>60) 05/02/20 05:28 Est GFR (MDRD) Non-Af > 60 (>60) 05/02/20 05:28 Glucose 137 mg/dL (75-110) H 05/02/20 05:28 POC Glucose 273 mg/dL (70-110) H 05/02/20 11:38 Calcium 9.9 mg/dL (8.4-10.2) 05/02/20 05:28 Total Bilirubin 0.5 mg/dL (0.2-1.3) 05/01/20 14:49 Direct Bilirubin 0.3 mg/dL (0.0-0.4) 05/01/20 14:49 Neonat Total Bilirubin Not Reportable 05/01/20 14:49 Neonat Direct Bilirubin Not Reportable 05/01/20 14:49 Neonat Indirect Bili Not Reportable 05/01/20 14:49 AST 18 U/L (17-59) 05/01/20 14:49 ALT 17 U/L (<50) 05/01/20 14:49 Alkaline Phosphatase 53 U/L (38-126) 05/01/20 14:49 Creatine Kinase 97 U/L (55-170) 05/01/20 14:49 CK-MB (CK-2) 1.92 ng/mL (<4.55) 05/01/20 14:49 Troponin I < 0.012 ng/mL 05/01/20 14:49 Total Protein 6.9 g/dL (6.3-8.2) 05/01/20 14:49 Albumin 4.4 g/dL (3.5-5.0) 05/01/20 14:49 Triglycerides 471 mg/dL (<150) H 05/02/20 05:28 Cholesterol 258.11 mg/dL (0-200) H 05/02/20 05:28 LDL Cholesterol Direct 124 mg/dL (<100) H 05/02/20 05:28 VLDL Cholesterol 94.0 mg/dL (10-31) H 05/02/20 05:28 VLDL Cholesterol, Calc UNABLE TO CALCULATE 05/02/20 05:28 HDL Cholesterol 34 mg/dL (>40) L 05/02/20 05:28 05/01/20 14:49 CK-MB (CK-2) 1.92 Troponin I < 0.012 Impressions: Chest X-Ray 05/01/20 14:17 IMPRESSION: NO ACUTE RADIOGRAPHIC FINDING IN THE CHEST. Head CT 05/01/20 14:17 IMPRESSION: NORMAL BRAIN CT WITHOUT CONTRAST. EVIDENCE OF ACUTE STROKE: NO. Head MRI 05/01/20 15:29 IMPRESSION: No evidence of acute infarct or other acute intracranial process. EVIDENCE OF ACUTE STROKE: NO. Plan Plan of Treatment: Follow up with primary care provider within 1 week. Eat a consistent carb, cardiac, diet. Take medications as prescribed. Check glucose ACHS, keep log, and present to PCP at follow up appointments. Encouraged tobacco/nicotine cessation. Return to the emergency department, as needed, for concerning symptoms. Time Spent: Greater than 30 Minutes Stroke Is this a Stroke Patient?: No Acute Heart Failure Is this a Heart Failure Patient?: No
== END 2020-05-02 16:52 | disposition home or self-care (01) ==
LOC: ER 14:12 → EH 16:34 → INTOOBSV 16:34 → 3W 21:25
PROVIDERS: ADMIT Family Medicine; ATTEND Registered Nurse
DX: G45.9 Transient cerebral ischemic attack, unspecified (principal); E11.65 Type 2 diabetes mellitus with hyperglycemia; E11.51 Type 2 diabetes mellitus with diabetic peripheral angiopathy without gangrene; F31.61 Bipolar disorder, current episode mixed, mild; Z91.14 Patient's other noncompliance with medication regimen; Z91.11 Patient's noncompliance with dietary regimen; D64.9 Anemia, unspecified; R29.810 Facial weakness; R47.1 Dysarthria and anarthria; R47.01 Aphasia; F17.200 Nicotine dependence, unspecified, uncomplicated; Z82.49 Family history of ischemic heart disease and other diseases of the circulatory system; Z90.49 Acquired absence of other specified parts of digestive tract; F40.240 Claustrophobia
CPT/HCPCS: 93005; 99285; 96374; 96375; 36415 ×2; 82553; 82962 ×2; 82550; 85025; 85027; 85610; 85730; 80048; 80053; 84484; 80061; 70551; 71045; 70450; 93010; 97161; 97165; G0378 ×3; J1815 ×4; J3490 ×4; J2270 ×2; J2060

== ENCOUNTER 2020-06-15 15:18 | Emergency (ER) | payer MEDICAID ==
[2020-06-15] MEDS ORDERED: ONDANSETRON HCL INJ/PF 4 MG/2 ML SDV IV ONE (17:07)
[2020-06-15] MEDS ORDERED: RINGERS SOLUTION,LACTATED 1,000 ML IV ONE (17:07)
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
--- NOTE | 2020-06-15 17:52 | EKG REPORT ---
SEVERITY:- BORDERLINE ECG - SINUS RHYTHM BORDERLINE T WAVE ABNORMALITIES : Confirmed by: Jack Carrillo MD 15-Jun-2020 17:51:55
[2020-06-15 18:13] LABS: ABSOLUTE BASOPHILS # (AUTO) 0.1 10^3/uL (0.0-0.2); ABSOLUTE EOSINOPHILS # (AUTO) 0.1 10^3/uL (0.0-0.6); ABSOLUTE LYMPHOCYTES (AUTO) 3.1 10^3/uL (0.5-4.7); ABSOLUTE MONOCYTES (AUTO) 0.5 10^3/uL (0.1-1.4); ABSOLUTE NEUT (AUTO) 7.9 10^3/uL (1.7-8.2); BASOPHILS % (AUTO) 0.7 % (0-2); EOSINOPHILS % (AUTO) 0.5 % (0-6); HEMATOCRIT 39.3 % (37.9-51.0); HEMOGLOBIN 13.1 g/dL (13.5-17.0); LYMPHOCYTES % (AUTO) 26.4 % (13-45); MEAN CORPUSCULAR HEMOGLOBIN 29.3 pg (27.0-33.4); MEAN CORPUSCULAR HGB CONC 33.2 g/dL (32.0-36.0); MEAN CORPUSCULAR VOLUME 88 fl (80-97); MONOCYTES % (AUTO) 4.6 % (3-13); PLATELET COUNT 360 10^3/uL (150-450); RED BLOOD COUNT 4.46 10^6/uL (4.35-5.55); RED CELL DISTRIBUTION WIDTH 12.8 % (11.5-14.0); SEGMENTED NEUTROPHILS % (AUTO) 67.8 % (42-78); TOTAL CELLS COUNTED % (AUTO) 100 %; WHITE BLOOD COUNT 11.6 10^3/uL (4.0-10.5)
--- NOTE | 2020-06-15 18:25 | RADIOLOGY REPORT (SQ) ---
EXAM DESCRIPTION: CHEST SINGLE VIEW IMAGES COMPLETED DATE/TIME: 06/15/2020 6:06 pm REASON FOR STUDY: dyspnea COMPARISON: 05/01/2020 EXAM PARAMETERS: NUMBER OF VIEWS: One view. TECHNIQUE: Single frontal radiographic view of the chest acquired. RADIATION DOSE: NA LIMITATIONS: None. FINDINGS: LUNGS AND PLEURA: No opacities, masses or pneumothorax. No pleural effusion. MEDIASTINUM AND HILAR STRUCTURES: No masses. Contour normal. HEART AND VASCULAR STRUCTURES: Heart normal in size. Normal vasculature. BONES: No acute findings. HARDWARE: None in the chest. OTHER: No other significant finding. IMPRESSION: NO ACUTE RADIOGRAPHIC FINDING IN THE CHEST. TECHNICAL DOCUMENTATION: JOB ID: [id number] [employer]- All Rights Reserved Reading location - IP/workstation name: [email or web address]
[2020-06-15 18:29] LABS: ALBUMIN 4.8 g/dL (3.5-5.0); ALKALINE PHOSPHATASE 57 U/L (38-126); ANION GAP 12 (5-19); ASPARTATE AMINO TRANSFERASE 23 U/L (17-59); BILIRUBIN,DIRECT 0.2 mg/dL (0.0-0.4); BILIRUBIN,TOTAL 0.8 mg/dL (0.2-1.3); BLOOD UREA NITROGEN 13 mg/dL (7-20); CALCIUM 9.8 mg/dL (8.4-10.2); CARBON DIOXIDE 28 mmol/L (22-30); CHLORIDE 96 mmol/L (98-107); GLUCOSE 223 mg/dL (75-110); POTASSIUM 4.1 mmol/L (3.6-5.0); TOTAL PROTEIN 7.9 g/dL (6.3-8.2)
[2020-06-15 18:41] LABS: TROPONIN I 0.013 ng/mL
[2020-06-15 19:16] VITALS: BP 162/89
== END 2020-06-15 19:32 | disposition home or self-care (01) ==
LOC: ER 15:18
DX: R19.7 Diarrhea, unspecified (principal); R05 Cough; R06.00 Dyspnea, unspecified; R11.2 Nausea with vomiting, unspecified; R09.81 Nasal congestion; R50.9 Fever, unspecified; M79.10 Myalgia, unspecified site; R09.89 Other specified symptoms and signs involving the circulatory and respiratory systems; M54.9 Dorsalgia, unspecified; G89.29 Other chronic pain; E11.9 Type 2 diabetes mellitus without complications; I50.9 Heart failure, unspecified; Z79.899 Other long term (current) drug therapy; Z79.4 Long term (current) use of insulin; F12.10 Cannabis abuse, uncomplicated; F17.200 Nicotine dependence, unspecified, uncomplicated; Z20.828 Contact with and (suspected) exposure to other viral communicable diseases
CPT/HCPCS: 93005; 99285; 96361; 96374; 36415; 85025; 87635; 80053; 84484; 83880; 71045; 93010; J2405; J7120; C9803